=== PATIENT | female | born 1990 | race African-American/Black ===

== ENCOUNTER 2018-06-14 14:55 | Observation (INO) | payer OTHER ==
[2018-06-14] MEDS ORDERED: SODIUM CHLORIDE 0.9% 500 ML INFUS.BAG IV ONE ×2 (16:01→20:29)
[2018-06-14] MEDS ORDERED: PANTOPRAZOLE SODIUM 40 MG VIAL IVPUSH ONE (16:01)
[2018-06-14] MEDS ORDERED: LIDOCAINE VISCOUS 2% ORAL/TOP 100 ML BOTTLE MM ONE (16:01)
[2018-06-14] MEDS ORDERED: MAG HYDROX/AL HYDROX/SIMETH 30 ML UNIT-DOSE CUP PO ONE (16:01)
[2018-06-14] MEDS ORDERED: ONDANSETRON 4 MG/2 ML VIAL IVPUSH ONE (16:02)
[2018-06-14] MEDS ORDERED: ONDANSETRON 4 MG/2 ML VIAL ONE (16:20)
[2018-06-14] MEDS ORDERED: PANTOPRAZOLE SODIUM 40 MG/100 ML BAG IVPB ONE ×2 (16:20→16:21)
[2018-06-14] MEDS ORDERED: MAG HYDROX/AL HYDROX/SIMETH 30 ML UNIT-DOSE CUP ONE (16:20)
[2018-06-14] MEDS ORDERED: LIDOCAINE VISCOUS 2% ORAL/TOP 20 ML UNIT-DOSE CUP ONE (16:20)
[2018-06-14 17:14] LABS: BASO % 0.5 % (0-2.0); EOS % 0.3 % (0-4.5); HEMATOCRIT 33.7 % (32.4-45.2); HEMOGLOBIN 11.3 GM/dL (10.7-15.3); LYMPH % 20.9 % (8-40); MCH 31.3 pg (25.7-33.7); MCHC 33.5 g/dl (32.0-36.0); MEAN CELL VOLUME 93.5 fl (80-96); MEAN PLT VOLUME 8.6 fl (7.5-11.1); MONO % 12.4 % (3.8-10.2); NEUT % 65.9 % (42.8-82.8); PLATELET COUNT 230 K/MM3 (134-434); RDW 13.2 % (11.6-15.6); WHITE BLOOD COUNT 7.3 K/mm3 (4.0-10.0)
--- NOTE | 2018-06-14 17:30 | PDOC ---
Attending Attestation - HPI HPI: 06/14/18 17:54 The patient is a 28 year old female with a significant PMH of gastritis H pylori who presents to the emergency department via EMS with recurring episodes of nausea and diarrhea for 4 days. The patient reports that she was recently diagnosed with gastritis at [facility] which she was discharged. The patient states that she was here in the ED for similar symptoms 3 times. She reports some constipation. She states that she has been unable to tolerate PO secondary to symptoms. The patient denies any other complaints or symptoms Documentation prepared by Regan Burns, acting as medical or surgical instrument maker for Unique Boykin MD. <Regan Burns - Last Filed: 06/14/18 17:54> - Resident Resident Name: Des Hodge - ED Attending Attestation I have performed the following: I have examined & evaluated the patient, The case was reviewed & discussed with the resident, I agree w/resident's findings & plan, Exceptions are as noted - Physicial Exam PE: 06/15/18 08:03 Gen: aaox3, appears uncomfortable heent: eomi, dry mm heart: +s1s2 reg lungs: cta b/l abd: soft, +ttp epigastric/LLQ/LUQ/suprapubic ext: no c/c/e skin: no rashes - Medical Decision Making 06/14/18 17:11 I, Dr. Unique Boykin, DO, attest that this document has been prepared under my direction and personally reviewed by me in its entirety. I further attest, that it accurately reflects all work, treatment, procedures and medical decision -making performed by me. 06/14/18 17:46 a/p: 28yo female with constipation x 4 days and 4 days of nonbilious/nonbloody vomitus -unable to tolerate po -4th er visit - seen at [facility] then 3rd visit to [facility] -abd with ttp LLQ, suprapubic, epigastric ttp -will repeat labs -will obtain ct abd/pelvis for further eval -will give ivf hydration, nausea control -will monitor and reassess 06/14/18 17:49 labs reviewed with improvement in mildly elevated lft pending ct <Unique Boykin - Last Filed: 06/15/18 08:04>
[2018-06-14 17:41] LABS: ALBUMIN 3.6 g/dl (3.4-5.0); ALK PHOS 47 U/L (45-117); ANION GAP 9 MMOL/L (8-16); BILIRUBIN,TOTAL 0.7 mg/dL (0.2-1.0); BLOOD UREA NITROGEN 12 mg/dL (7-18); CALCIUM 8.2 mg/dL (8.5-10.1); CHLORIDE 105 mmol/L (98-107); CO2 24 mmol/L (21-32); CREATININE 0.6 mg/dL (0.55-1.02); GLUCOSE,RANDOM 64 mg/dL (74-106); SGOT/AST 21 U/L (15-37); SGPT/ALT 57 U/L (12-78); SODIUM 138 mmol/L (136-145); TOT PROT 6.4 g/dl (6.4-8.2)
[2018-06-14 17:43] LABS: LIPASE 262 U/L (73-393)
[2018-06-14] MEDS ORDERED: DEXTROSE 50%-WATER - 25 GM/50 ML VIAL IVPUSH ONE (18:01)
[2018-06-14] MEDS ORDERED: DEXTROSE 50%-WATER 25 GM/50 ML DISP.SYRIN ONE (18:22)
--- NOTE | 2018-06-14 18:57 | PDOC ---
History of Present Illness - General Chief Complaint: Nausea/Vomiting Stated Complaint: Nausea/Vomiting Time Seen by Provider: 06/14/18 15:38 History Source: Patient Exam Limitations: No Limitations - History of Present Illness Initial Comments: 28 y/o female presenting to [facility] via ambulance complaining of nausea/ vomiting and abdominal pain. Symptoms have been acute on chronic since the beginning of May. She was evaluated at [facility] and diagnosed with gastritis secondary to h. Pylori, which was revealed by endoscopic biopsy ( she reports). Dr. Martinez is her director [employer] of record; prescribed triple therapy; pt reports good compliance until the past three days. She has been experiencing nausea and vomiting for the past few days; described as non- bloody and non-bilious. Has been evaluated at [facility] once and twice at this facility since 12 June 2018. Was discharged yesterday with PO zofran and Maalox. Pt reports she continues to be unable to take anything PO without vomiting. CBC unremarkable for derangement. CMP revealed i 1+ acetone in serum. 06/15/18 00:[address] Biggs. Agrees to admit pt to med/ surg for observation status. Past History - Past Medical History Allergies/Adverse Reactions: Allergies Allergy/AdvReac Type Severity Reaction Status Date / Time No Known Allergies Allergy Verified 06/14/18 15:20 Home Medications: Ambulatory Orders Mag Hydrox/Al Hydrox/Simeth [Mylanta Suspension -] 30 ml PO Q6H #1 bottle Ondansetron [Ondansetron Odt] 8 mg PO QID PRN 3 Days #12 tab.rapdis 06/13/18 Amoxicillin - [Amoxicillin 500mg Capsule -] 1,000 mg BID 06/14/18 Clarithromycin 500 mg BID 06/14/18 Ondansetron [Zofran Odt -] 4 mg PO Q8H 06/14/18 COPD: No GI Disorders: Yes (Gerd & H-pil) - Immunization History Immunization Up to Date: Yes - Suicide/Smoking/Psychosocial Hx Smoking Status: Yes Smoking History: Current every day smoker Have you smoked in the past 12 months: Yes Number of Cigarettes Smoked Daily: 3 Information on smoking cessation initiated: Yes Hx Alcohol Use: Yes Drug/Substance Use Hx: No Substance Use Type: None Review of Systems - Review of Systems Constitutional: No: Chills, Diaphoresis, Fever, Weakness HEENTM: No: Difficulty Swallowing Respiratory: No: Cough, Shortness of Breath Cardiac (ROS): No: Chest Pain ABD/GI: Yes: Nausea, Vomiting, Abdominal cramping. No: Constipated, Diarrhea, Difficulty Swallowing, Poor Appetite, Rectal Bleeding, Tarry Stools : No: Burning, Dysuria, Discharge, Flank Pain, Hematuria Integumentary: No: Rash Endocrine: No: Increased Hunger Hematologic/Lymphatic: No: Easy Bleeding, Easy Bruising *Physical Exam - Vital Signs Last Vital Signs Temp Pulse Resp BP Pulse Ox 99.3 F 78 18 144/90 100 06/14/18 14:58 06/14/18 18:32 06/14/18 18:32 06/14/18 18:32 06/14/18 18:32 - Physical Exam Comments: Constitutional: Well-developed, well-nourished female in no apparent life threat but in obvious discomfort. Found semi-fowlers in hospital bed. Alert and oriented x4. Answered all questions appropriately and completely. Speech was non-labored, non-pressured. No retching or vomiting witnessed during interview. HEENT: Normocephalic. No obvious external signs of trauma. Hearing grossly normal. No nasal discharge. Conjunctiva and oral mucosa moist and not injected. Neck is supple, trachea is midline. Cardiovascular: Regular rate and regular rhythm. No murmur, rubs, clicks, or gallops. Peripheral pulses: Radial pulses full. Respiratory: Equal chest rise and fall. Clear to auscultation bilaterally. No stridor, no wheezing, no rhonchi. Gastrointestinal: abdomen is tender in epigastrium without rebound or guarding. No peritoneal signs. Abd is otherwise soft and non-distended. No hepatosplenemegaly. No pulsatile masses. No overlying skin lesions or obvious signs of trauma. Neuro: Alert and oriented. Moving all four extremities spontaneously. Skin: Warm, dry, and intact. No bruising, rashes, or other lesions. : No R or L CVA tenderness. Psych: Affect: appropriate. Mood: normal. ED Treatment Course - LABORATORY CBC & Chemistry Diagram: 06/14/18 16:55 06/14/18 16:55 - ADDITIONAL ORDERS Additional order review: Laboratory Results 06/14/18 06/14/18 16:55 16:55 Sodium 138 Potassium 4.0 Chloride 105 Carbon Dioxide 24 Anion Gap 9 BUN 12 Creatinine 0.6 Creat Clearance w eGFR > 60 Random Glucose 64 L Calcium 8.2 L Total Bilirubin 0.7 AST 21 ALT 57 Alkaline Phosphatase 47 D Total Protein 6.4 Albumin 3.6 Lipase 262 Beta HCG, Quant < 1.0 06/14/18 16:55 RBC 3.60 MCV 93.5 MCHC 33.5 RDW 13.2 MPV 8.6 Neutrophils % 65.9 Lymphocytes % 20.9 D Monocytes % 12.4 H Eosinophils % 0.3 D Basophils % 0.5 - RADIOLOGY Radiology Studies Ordered: Category Date Time Status ABDOMEN & PELVIS CT WITH CONTR [CT] Stat CT Scan 06/14/18 17:04 Ordered - Medications Given in the ED: ED Medications Discontinued Medications Generic Name Dose Route Start Last Admin Trade Name Freq PRN Reason Stop Dose Admin Al Hydroxide/Mg Hydroxide 30 ml 06/14/18 16:01 06/14/18 16:30 Mylanta Oral Suspension - PO 06/14/18 16:02 30 ml ONCE ONE Administration Dextrose 12.5 gm 06/14/18 18:01 06/14/18 18:25 D50w (Vial) - IVPUSH 06/14/18 18:02 12.5 gm NOW ONE Administration Lidocaine HCl 15 ml 06/14/18 16:01 06/14/18 16:30 Xylocaine 2% Viscous MM 06/14/18 16:02 15 ml ONCE ONE Administration Ondansetron HCl 4 mg 06/14/18 16:02 06/14/18 16:31 Zofran Injection IVPUSH 06/14/18 16:03 4 mg ONCE ONE Administration Pantoprazole Sodium 40 mg 06/14/18 16:01 06/14/18 16:30 Protonix Iv IVPUSH 06/14/18 16:02 40 mg ONCE ONE Administration Sodium Chloride 1,000 ml 06/14/18 16:01 06/14/18 16:30 Normal Saline - IV 06/14/18 16:02 1,000 ml ONCE ONE Administration Medical Decision Making - Medical Decision Making *Reviewed nursing notes and prior visit documentation. 28 y/o female complaining of nausea/vomiting in setting of recently diagnosed gastritis and h. Pylori infection. Currently on triple therapy. Has been evaluated four times at two different hospitals in the past three days. Unable to tolerate PO. Afebrile. Vitals unremarkable for hypotension or tachycardia. Physical exam revealed tenderness in epigastrium without peritoneal signs. Concern for developing malnutrition versus metabolic derangement with duration of symptoms. Nausea/vomiting likely secondary to gastritis. Low suspicion for gastric perforation without peritoneal signs. Low suspicion for Boerhaave's syndrome without chest pain. Will order CBC, CMP, PCP: Ayden Bañuelos 18:03 Mildly hypoglycemic. Ordered half an amp of D50. 19:52 Pt reports burning sensation in throat and abdominal pain has somewhat improved. Completed drinking both cups of PO contrast without vomiting. 06/14/18 22:02 CT abdomen with PO contrast unremarkable for acute intra- abdominal process. Pt reports she continues to feel intense nausea and abdominal pain. Microblog sent to [facility] Hospitalist team for admission for observation with concern for likely decreased PO intake at home if discharged. 06/14/18 22:09 Ordered serum acetone with concern for acidosis give ketones present in urine. Ordered Reglan for additional antiemetic relief. 06/15/18 00:22 Serum acetone 1+ positive. Bedside consultation with Dr. Biggs. Agrees to admit pt to med/surg for observation. *DC/Admit/Observation/Transfer Diagnosis at time of Disposition: Unable to eat Vomiting Qualifiers: Vomiting type: unspecified Vomiting Intractability: intractable Nausea presence : with nausea Qualified Code(s): R11.2 - Nausea with vomiting, unspecified - Discharge Dispostion Condition at time of disposition: Fair Decision to Admit order: Yes - Referrals Referrals: Ayden Bañuelos [Primary Care Provider] - - Patient Instructions - Post Discharge Activity
[2018-06-14 19:10] LABS: URINE APPEARANCE CLOUDY; URINE BILIRUBIN NEGATIVE (<2.0 mg/dL); URINE COLOR YELLOW; URINE GLUCOSE (UA) 2+ (NEGATIVE); URINE KETONE 2+ (NEGATIVE); URINE LEUK ESTERASE TRACE (NEGATIVE); URINE NITRITE NEGATIVE (NEGATIVE); URINE UROBILINOGEN NEGATIVE mg/dL (0.2-1.0)
[2018-06-14 19:14] LABS: URINE PROTEIN 1+ (NEGATIVE)
[2018-06-14 19:20] LABS: EPI CELLS MANY /HPF (FEW); URINE BACTERIA RARE /hpf (NONE SEEN); URINE MUCUS FEW
--- NOTE | 2018-06-14 20:35 | PDOC ---
*Physical Exam - Vital Signs Last Vital Signs Temp Pulse Resp BP Pulse Ox 99.3 F 78 18 144/90 100 06/14/18 14:58 06/14/18 18:32 06/14/18 18:32 06/14/18 18:32 06/14/18 18:32 ED Treatment Course - LABORATORY CBC & Chemistry Diagram: 06/14/18 16:55 06/14/18 16:55 - ADDITIONAL ORDERS Additional order review: Laboratory Results 06/14/18 06/14/18 06/14/18 18:56 16:55 16:55 Sodium 138 Potassium 4.0 Chloride 105 Carbon Dioxide 24 Anion Gap 9 BUN 12 Creatinine 0.6 Creat Clearance w eGFR > 60 Random Glucose 64 L Calcium 8.2 L Total Bilirubin 0.7 AST 21 ALT 57 Alkaline Phosphatase 47 D Total Protein 6.4 Albumin 3.6 Lipase 262 Beta HCG, Quant < 1.0 Urine Color Yellow Urine Appearance Cloudy Urine pH 6.0 Ur Specific [place] 1.021 Urine Protein 1+ H Urine Glucose (UA) 2+ H Urine Ketones 2+ H Urine Blood 3+ H Urine Nitrite Negative Urine Bilirubin Negative Urine Urobilinogen Negative Ur Leukocyte Esterase Trace Urine WBC (Auto) 11 Urine RBC (Auto) 7 Ur Epithelial Cells Many Urine Bacteria Rare Urine Mucus Few 06/14/18 16:55 RBC 3.60 MCV 93.5 MCHC 33.5 RDW 13.2 MPV 8.6 Neutrophils % 65.9 Lymphocytes % 20.9 D Monocytes % 12.4 H Eosinophils % 0.3 D Basophils % 0.5 - Medications Given in the ED: ED Medications Discontinued Medications Generic Name Dose Route Start Last Admin Trade Name Riddhi PRN Reason Stop Dose Admin Al Hydroxide/Mg Hydroxide 30 ml 06/14/18 16:01 06/14/18 16:30 Mylanta Oral Suspension - PO 06/14/18 16:02 30 ml ONCE ONE Administration Dextrose 12.5 gm 06/14/18 18:01 06/14/18 18:25 D50w (Vial) - IVPUSH 06/14/18 18:02 12.5 gm NOW ONE Administration Lidocaine HCl 15 ml 06/14/18 16:01 06/14/18 16:30 Xylocaine 2% Viscous MM 06/14/18 16:02 15 ml ONCE ONE Administration Ondansetron HCl 4 mg 06/14/18 16:02 06/14/18 16:31 Zofran Injection IVPUSH 06/14/18 16:03 4 mg ONCE ONE Administration Pantoprazole Sodium 40 mg 06/14/18 16:01 06/14/18 16:30 Protonix Iv IVPUSH 06/14/18 16:02 40 mg ONCE ONE Administration Sodium Chloride 1,000 ml 06/14/18 16:01 06/14/18 16:30 Normal Saline - IV 06/14/18 16:02 1,000 ml ONCE ONE Administration Medical Decision Making - Medical Decision Making 06/14/18 20:33 I picked up patient in signout. SHe has been vomiting and feeling nauseous for days. She has normal labs; however she is ketotic -likely the cause of worsening Nausea and vomiting. She received 1L NSS previously; I ordred another L saline and we will follow that with D5W. 06/15/18 00:59 Despite hydration pt has a serum acetone of 1+ She will be admitted to the hospitalist team. *DC/Admit/Observation/Transfer Diagnosis at time of Disposition: Vomiting, Unable to eat - Discharge Dispostion Condition at time of disposition: Fair - Referrals Referrals: Ayden Bañuelos [Primary Care Provider] - - Patient Instructions - Post Discharge Activity
[2018-06-14] MEDS ORDERED: METOCLOPRAMIDE HCL INJECTION 10 MG/2 ML VIAL IVPUSH ONE (22:08)
[2018-06-14] MEDS ORDERED: METOCLOPRAMIDE HCL INJECTION 10 MG/2 ML VIAL ONE (23:26)
--- NOTE | 2018-06-14 23:32 | HP ---
CHIEF COMPLAINT: PCP: Ayden Bañuelos HISTORY OF PRESENT ILLNESS: 28 y/o female w/ PMH of recent dx of H pylori back in may 2018, p/w nausea/ vomiting and epigastric pain that is sharp and burning. She has been experiencing worsening nausea and vomiting described as non-bloody and non- bilious, as well as abdominal pain that is R sided and migrates to epigastrum. Pain is worsened w/ hunger. Symptoms have been acute on chronic since the beginning of May where she was evaluated at [facility] and diagnosed with gastritis secondary to h. Pylori, which was revealed by endoscopic biopsy (she reports). 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 Of note pt finishing course of clindamycin for tooth ache/infection Has been evaluated at [facility] once and twice at this facility since . She was discharged yesterday with PO zofran and Maalox. Pt reports being unable to take anything PO without vomiting, 4 episodes today. Pt started eating spicy chips a few weeks ago. Of note pt endorses tea colored urine. LMP and periods are regular. Denies any fever, chills, cp, sob, dysuria, blood in stools, vaginal discharge or bleeding ER course was notable for: (1)2L NS, mylanta, protonix, zofran, D50 (2)CT A/P - no acute process, mod-small spleen (3)preg test neg. UA 3+ blood, 2+ glucose and ketones 1+protein. lipase nl Recent Travel: denies PAST MEDICAL HISTORY: LMP 05/25/18, periods are regular has 1 daughter, vaginal PAST SURGICAL HISTORY: denies Social History: Smokin/2 ppd/10yr Alcohol:every other weekend 2 cups vodka Drugs: marijuana Family History: DM Allergies No Known Allergies Allergy (Verified 06/14/18 15:20) HOME MEDICATIONS: Home Medications Prescribed by Dr. Martinez amox, clarithromycin, omeprazole Clindamycin, per pt taking for tooth ache/infection Medication Instructions Recorded Mag Hydrox/Al Hydrox/Simeth 30 ml PO Q6H #1 bottle 06/13/18 [Mylanta Suspension -] Ondansetron [Ondansetron Odt] 8 mg PO QID PRN 3 Days #12 06/13/18 tab.rapdis REVIEW OF SYSTEMS reviewed in hpi PHYSICAL EXAMINATION Vital Signs - 24 hr 06/14/18 06/14/18 14:58 18:32 Temperature 99.3 F Pulse Rate 75 Pulse Rate [ 78 Left Radial] Respiratory 18 18 Rate Blood Pressure 132/86 Blood Pressure 144/90 [Right Arm] O2 Sat by Pulse 100 100 Oximetry (%) GENERAL:AOx3, in mild distress and looks uncomfortable. anxious and emotional. asking "am I a bad person?" Thin appearing HEAD: NCAT EYES: PERRLA, sclera anicteric, conjunctiva clear. No lid lag. EARS, NOSE, THROAT: nares patent, oropharynx clear without exudates. dry MM. NECK: Normal range of motion, supple without lymphadenopathy, JVD, or masses. LUNGS: CTAB No wheezes, and no crackles. No accessory muscle use. HEART: RRR, normal S1 and S2 systoli t murmur at apex? no rub or gallop. ABDOMEN: Soft, NT ND ++BS, no guarding, no rebound, no masses. MUSCULOSKELETAL: Normal range of motion at all joints. No bony deformities or tenderness. UPPER EXTREMITIES: 2+ pulses, warm, well-perfused. No cyanosis. No clubbing. No peripheral edema. LOWER EXTREMITIES: 2+ pulses, warm, well-perfused. No calf tenderness. No peripheral edema. NEUROLOGICAL: Cranial nerves II-XII intact. Normal speech. PSYCHIATRIC: Cooperative. Good eye contact. Appropriate mood and affect. SKIN: Warm, dry, normal turgor, no rashes or lesions noted, normal capillary refill. Laboratory Results - last 24 hr 06/14/18 06/14/18 06/14/18 16:55 16:55 16:55 WBC 7.3 RBC 3.60 Hgb 11.3 Hct 33.7 MCV 93.5 MCH 31.3 MCHC 33.5 RDW 13.2 Plt Count 230 MPV 8.6 Absolute Neuts (auto) 4.8 Neutrophils % 65.9 Lymphocytes % 20.9 D Monocytes % 12.4 H Eosinophils % 0.3 D Basophils % 0.5 Nucleated RBC % 0 Sodium 138 Potassium 4.0 Chloride 105 Carbon Dioxide 24 Anion Gap 9 BUN 12 Creatinine 0.6 Creat Clearance w eGFR > 60 Random Glucose 64 L Calcium 8.2 L Total Bilirubin 0.7 AST 21 ALT 57 Alkaline Phosphatase 47 D Total Protein 6.4 Albumin 3.6 Lipase 262 Beta HCG, Quant < 1.0 Urine Color Urine Appearance Urine pH Ur Specific [place] Urine Protein Urine Glucose (UA) Urine Ketones Urine Blood Urine Nitrite Urine Bilirubin Urine Urobilinogen Ur Leukocyte Esterase Urine WBC (Auto) Urine RBC (Auto) Ur Epithelial Cells Urine Bacteria Urine Mucus 06/14/18 18:56 WBC RBC Hgb Hct MCV MCH MCHC RDW Plt Count MPV Absolute Neuts (auto) Neutrophils % Lymphocytes % Monocytes % Eosinophils % Basophils % Nucleated RBC % Sodium Potassium Chloride Carbon Dioxide Anion Gap BUN Creatinine Creat Clearance w eGFR Random Glucose Calcium Total Bilirubin AST ALT Alkaline Phosphatase Total Protein Albumin Lipase Beta HCG, Quant Urine Color Yellow Urine Appearance Cloudy Urine pH 6.0 Ur Specific [place] 1.021 Urine Protein 1+ H Urine Glucose (UA) 2+ H Urine Ketones 2+ H Urine Blood 3+ H Urine Nitrite Negative Urine Bilirubin Negative Urine Urobilinogen Negative Ur Leukocyte Esterase Trace Urine WBC (Auto) 11 Urine RBC (Auto) 7 Ur Epithelial Cells Many Urine Bacteria Rare Urine Mucus Few ASSESSMENT/PLAN: 28 y/o female w/ PMH of recent dx of H pylori back in may 2018, p/w nausea/ vomiting and epigastric pain on triple therapy Abd pain/N/V - 2/2 failed triple therapy for H Pylori vs non compliance vs difficulty tolerating PO. -liquid diet and advance as tolerated -quadruple therapy - amox/flagyl/protonix/bismuth -hold home clarithromycin will switch to flagyl -maalox -zofran for nausea -classroom monitor Qtc -IVF NS 125cc/hr -CBC and CMP grossly nl -preg test - neg -lipase nl -CT A/P - no acute process, mod-small spleen -no need for cultures, pt afebrile VSS, no leukocytosis -UA 3+ blood, 2+ glucose and ketones 1+ protein -f/u acetone level -glucose is on low side of 64 Transaminitis on 06/12 in the ED that has since self resolved - bili and alk phosph were nl at that time. May be 2/2 drug intoxication. possible passed stone w/ normal bili/alkphosh -Abd U/S 06/12 - Questionable slightly coarse echotexture of the liver. Please correlate with liver enzymes to rule out mild fatty infiltration. No gallstones are identified. Right kidney is isoechoic to the adjacent liver parenchyma that could be within normal limits -U-tox Dispo -obs -if pt tolerating PO and sxs improve can dc Visit type - Emergency Visit Emergency Visit: Yes ED Registration Date: 06/15/18 Care time: The patient presented to the Emergency Department on the above date and was hospitalized for further evaluation of their emergent condition. - New Patient This patient is new to me today: Yes Date on this admission: 06/15/18 - Critical Care Critical Care patient: No Hospitalist Screening - Colonoscopy Questionnaire Colonoscopy Questionnaire: Colonoscopy Questionnaire - Patient: 50 - 75 years old and never had a screening colonoscopy: Unknown History of colon or rectal polyps, or CA: Unknown History of IBD, Crohn's disease or UC: Unknown History of abdominal radiation therapy as a child: Unknown - Relative: 1 with colon or rectal CA, or polyps at age 60 or younger: Unknown Colon or rectal CA diagnosed at age 45 or younger: Unknown Multiple relatives with colon or rectal CA: Unknown - Outcome: Screening Result: Negative Screen
[2018-06-14] MEDS ORDERED: ACETAMINOPHEN 325 MG TABLET (FP) PO PRN (23:39)
[2018-06-14] MEDS ORDERED: SODIUM CHLORIDE 1,000 ML IV SCH (23:45)
[2018-06-15] MEDS: HEPARIN NA (PORCINE) 5,000 UNITS/ML 1ML VIAL SQ SCH ×3 (00:15→13:52)
[2018-06-15] MEDS ORDERED: HEPARIN NA (PORCINE) 5,000 UNITS/ML 1ML VIAL ONE (01:20)
[2018-06-15] MEDS ORDERED: AMOXICILLIN 500 MG CAPSULE (FP) PO SCH (02:21)
[2018-06-15] MEDS ORDERED: AMOXICILLIN 500 MG CAPSULE (FP) ONE (02:28)
[2018-06-15] MEDS: SODIUM CHLORIDE 1,000 ML IV SCH ×2 (03:38→09:55)
[2018-06-15 04:15] VITALS: BMI 19.2
--- NOTE | 2018-06-15 05:58 | PN ---
Teaching Attending Note Name of Resident: Basim Preston ATTENDING PHYSICIAN STATEMENT I saw and evaluated the patient. I reviewed the resident's note and discussed the case with the resident. I agree with the resident's findings and plan as documented. SUBJECTIVE: OBJECTIVE: ASSESSMENT AND PLAN: this is a 28 y/o female patient admitted to the hospital for intractable vomiting and nausea, patient was recently diagnosed with H. Pylori and was started on medical therapy, patient is still complaining of the epigastric pain , she is on day 10 of the therapy but since she was vomiting for the past 2 days decided to come to the hospital for failure to thrive, with nausea and vomiting plan: start PO diet when tolerable by patient start the patient on 4 therapy regiment since after 10 days the patient has no relief c/w IVF hydration anti-emetics prn d/c clarithromycin due to QT prolongation risk with anti-emetics
[2018-06-15] MEDS ORDERED: metroNIDAZOLE 250 MG TABLET PO SCH (06:00)
[2018-06-15] MEDS: MAG HYDROX/AL HYDROX/SIMETH 30 ML UNIT-DOSE CUP PO SCH ×2 (07:14→07:17)
[2018-06-15] MEDS: metroNIDAZOLE 250 MG TABLET PO SCH ×2 (07:17→13:52)
[2018-06-15 08:07] LABS: ALBUMIN 3.4 g/dl (3.4-5.0); ANION GAP 11 MMOL/L (8-16); BLOOD UREA NITROGEN 8 mg/dL (7-18); CALCIUM 8.1 mg/dL (8.5-10.1); CHLORIDE 103 mmol/L (98-107); CO2 23 mmol/L (21-32); GLUCOSE,RANDOM 65 mg/dL (74-106); MAGNESIUM 1.8 mg/dL (1.8-2.4); POTASSIUM 3.5 mmol/L (3.5-5.1); SODIUM 137 mmol/L (136-145)
[2018-06-15 08:09] LABS: EOS % 0.4 % (0-4.5); HEMATOCRIT 33.2 % (32.4-45.2); HEMOGLOBIN 11.2 GM/dL (10.7-15.3); LYMPH % 33.1 % (8-40); MCH 31.4 pg (25.7-33.7); MCHC 33.6 g/dl (32.0-36.0); MEAN CELL VOLUME 93.5 fl (80-96); MEAN PLT VOLUME 8.8 fl (7.5-11.1); NEUT % 51.5 % (42.8-82.8); PLATELET COUNT 200 K/MM3 (134-434); RBC 3.55 M/mm3 (3.60-5.2)
[2018-06-15 08:14] LABS: ALK PHOS 43 U/L (45-117); BILIRUBIN,TOTAL 0.7 mg/dL (0.2-1.0); CREATININE 0.5 mg/dL (0.55-1.02); PHOSPHOROUS 2.1 mg/dL (2.5-4.9); SGOT/AST 17 U/L (15-37); SGPT/ALT 43 U/L (12-78); TOT PROT 5.8 g/dl (6.4-8.2)
[2018-06-15 08:19] LABS: INR 1.17 (0.83-1.09); PROTHROMBIN TIME (PATIENT) 13.2 SEC (9.7-13.0)
[2018-06-15] MEDS ORDERED: NAPH,MB-DB/K PH,MBDB POWDER PACKET PO ONE (08:50)
--- NOTE | 2018-06-15 09:03 | PN ---
Progress Note (short form) - Note Progress Note: c/o epigastric pain. staets nausea and vomiting have stopped but scared to eat as she may not be able to tolerate. said nausea started 3 days ago and have not eaten well or taking her medications since. went to [facility] ER 2 days ago and gave her meds (protonix and potassium) she felt better and was sent home. denies CP, SOB, fever, chills. last BM was 4 days ago Current Medications Generic Name Dose Route Start Last Admin Trade Name Freedwin PRN Reason Stop Dose Admin Acetaminophen 650 mg 06/14/18 23:39 Tylenol - PO Q4H PRN PAIN LEVEL 6-10 Al Hydroxide/Mg Hydroxide 30 ml 06/15/18 02:30 06/15/18 07:17 Mylanta Oral Suspension - PO 30 ml Q6HPO KELLI Administration Bismuth Subsalicylate 300 mg 06/15/18 10:00 Pepto-Bismol - PO QID KELLI Doxycycline Hyclate 100 mg 06/15/18 10:00 Vibramycin - PO BID@1000,1800 KELLI Heparin Sodium (Porcine) 5,000 unit 06/14/18 23:45 06/15/18 07:20 Heparin - SQ 5,000 unit TID KELLI Administration Sodium Chloride 1,000 mls @ 125 mls/hr 06/15/18 02:35 06/15/18 03:38 Normal Saline - IV 125 mls/hr ASDIR KELLI Administration Metronidazole 500 mg 06/15/18 02:24 06/15/18 07:17 Flagyl - PO 500 mg TID KELLI Administration Pantoprazole Sodium 40 mg 06/15/18 10:00 Protonix - PO BID KELLI Potassium Phos/Sodium Phos 2 packet 06/15/18 08:50 Phos-Nak Packet - PO 06/15/18 08:51 ONCE ONE Last Vital Signs Temp Pulse Resp BP Pulse Ox 98.3 F 75 18 129/78 100 06/15/18 06:00 06/15/18 06:00 06/15/18 06:00 06/15/18 06:00 06/15/18 03:11 General very anxious, tearful during exam CV S1 S2 RRR no murmur/rub/gallop Lungs CTA B/L no wheezing/rales/rhonchi Abdomen +epigastric tenderness soft no rebound or guarding. normoactive BS CBCD WBC 7.0 K/mm3 (4.0-10.0) 06/15/18 06:00 RBC 3.55 M/mm3 (3.60-5.2) L 06/15/18 06:00 Hgb 11.2 GM/dL (10.7-15.3) 06/15/18 06:00 Hct 33.2 % (32.4-45.2) 06/15/18 06:00 MCV 93.5 fl (80-96) 06/15/18 06:00 MCHC 33.6 g/dl (32.0-36.0) 06/15/18 06:00 RDW 13.0 % (11.6-15.6) 06/15/18 06:00 Plt Count 200 K/MM3 (134-434) 06/15/18 06:00 MPV 8.8 fl (7.5-11.1) 06/15/18 06:00 CMP Sodium 137 mmol/L (136-145) 06/15/18 06:00 Potassium 3.5 mmol/L (3.5-5.1) 06/15/18 06:00 Chloride 103 mmol/L (98-107) 06/15/18 06:00 Carbon Dioxide 23 mmol/L (21-32) 06/15/18 06:00 Anion Gap 11 MMOL/L (8-16) 06/15/18 06:00 BUN 8 mg/dL (7-18) 06/15/18 06:00 Creatinine 0.5 mg/dL (0.55-1.02) L 06/15/18 06:00 Creat Clearance w eGFR > 60 (>60) 06/15/18 06:00 Calcium 8.1 mg/dL (8.5-10.1) L 06/15/18 06:00 Total Bilirubin 0.7 mg/dL (0.2-1.0) 06/15/18 06:00 AST 17 U/L (15-37) 06/15/18 06:00 ALT 43 U/L (12-78) 06/15/18 06:00 Alkaline Phosphatase 43 U/L (45-117) L 06/15/18 06:00 Total Protein 5.8 g/dl (6.4-8.2) L 06/15/18 06:00 Albumin 3.4 g/dl (3.4-5.0) 06/15/18 06:00 Assessment and plan 28yo F with recently dx of Hpylori on bx started on triple therapy and not tolerating regimen 1. Abdominal pain with nausea and vomiting- likely due to abx regimen and intolerance of therapy. was switched to quadruple therapy with mild improvement. did not eat much but does not like the liquid diet. will switch to BRAT diet. antiemetics. will need to f/u with GI as outpatient 2. can d/c home once tolerating diet Visit type - Emergency Visit Emergency Visit: Yes ED Registration Date: 06/15/18 Care time: The patient presented to the Emergency Department on the above date and was hospitalized for further evaluation of their emergent condition. - New Patient This patient is new to me today: Yes Date on this admission: 06/15/18 - Critical Care Critical Care patient: No - Discharge Referral Referred to [facility] Med P.C.: No
[2018-06-15] MEDS ORDERED: PANTOPRAZOLE 40 MG TABLET (FP) PO SCH ×2 (10:00)
[2018-06-15] MEDS ORDERED: LACTOBACILLUS ACIDOPHILUS 1 TABLET PO SCH (10:15)
[2018-06-15] MEDS: DOXYCYCLINE HYCLATE 100 MG CAPSULE PO SCH ×2 (10:44→16:16)
[2018-06-15 11:41] LABS: COCAINE, UR NEGATIVE ng/ml (CUTOFF=300); METHADONE, UR NEGATIVE ng/ml (CUTOFF=300); OPIATES, URI NEGATIVE ng/ml (CUTOFF=300); PHENCYCLIDINE,URINE NEGATIVE ng/ml (CUTOFF=25); URINE AMPHETAMINES NEGATIVE ng/ml (CUTOFF=500); URINE BARBITURATES NEGATIVE ng/ml (CUTOFF=200); URINE BENZODIAZEPINES NEGATIVE ng/ml (CUTOFF=200)
[2018-06-15] MEDS: BISMUTH SUBSALICYLATE 524 MG/30 ML UD PO SCH ×2 (12:19→18:04)
[2018-06-15 15:38] VITALS: TEMP 98.7
[2018-06-15 17:47] VITALS: BP 135/86; PULSE 72
--- NOTE | 2018-06-15 18:55 | EKG ---
Test Reason : Blood Pressure : / mmHG Vent. Rate : 062 BPM Atrial Rate : 062 BPM P-R Int : 142 ms QRS Dur : 068 ms QT Int : 430 ms P-R-T Axes : 041 067 072 degrees QTc Int : 436 ms NORMAL SINUS RHYTHM WITH SINUS ARRHYTHMIA NORMAL ECG NO PREVIOUS ECGS AVAILABLE Confirmed by MAKEDA MIRZA MD ([id number]) on 06/15/2018 6:55:27 PM Referred By: Confirmed By:MAKEDA MIRZA MD
--- NOTE | 2018-06-16 07:20 | DS ---
Physical Exam: SUBJECTIVE: Patient seen and examined LABS Laboratory Results - last 24 hr 06/15/18 06/15/18 06/15/18 06:00 06:00 06:00 WBC 7.0 RBC 3.55 L Hgb 11.2 Hct 33.2 MCV 93.5 MCH 31.4 MCHC 33.6 RDW 13.0 Plt Count 200 MPV 8.8 Absolute Neuts (auto) 3.6 Neutrophils % 51.5 D Lymphocytes % 33.1 D Monocytes % 14.0 H Eosinophils % 0.4 Basophils % 1.0 Nucleated RBC % 0 PT with INR 13.20 H INR 1.17 H PTT (Actin FS) 31.0 Sodium 137 Potassium 3.5 Chloride 103 Carbon Dioxide 23 Anion Gap 11 BUN 8 Creatinine 0.5 L Creat Clearance w eGFR > 60 Random Glucose 65 L Calcium 8.1 L Phosphorus 2.1 L Magnesium 1.8 Total Bilirubin 0.7 AST 17 ALT 43 Alkaline Phosphatase 43 L Total Protein 5.8 L Albumin 3.4 Opiates Screen Methadone Screen Barbiturate Screen Phencyclidine Screen Ur Amphetamines Screen MDMA (Ecstasy) Screen Benzodiazepines Screen Cocaine Screen U Marijuana (THC) Screen 06/15/18 10:30 WBC RBC Hgb Hct MCV MCH MCHC RDW Plt Count MPV Absolute Neuts (auto) Neutrophils % Lymphocytes % Monocytes % Eosinophils % Basophils % Nucleated RBC % PT with INR INR PTT (Actin FS) Sodium Potassium Chloride Carbon Dioxide Anion Gap BUN Creatinine Creat Clearance w eGFR Random Glucose Calcium Phosphorus Magnesium Total Bilirubin AST ALT Alkaline Phosphatase Total Protein Albumin Opiates Screen Negative Methadone Screen Negative Barbiturate Screen Negative Phencyclidine Screen Negative Ur Amphetamines Screen Negative MDMA (Ecstasy) Screen Negative Benzodiazepines Screen Negative Cocaine Screen Negative U Marijuana (THC) Screen Positive HOSPITAL COURSE: Date of Admission:06/15/18 Date of Discharge: 06/16/18 ADmitting diagnosis: adbominal pain Pre hospital course 28 y/o female w/ PMH of recent dx of H pylori back in may 2018, p/w nausea/ vomiting and epigastric pain that is sharp and burning. She has been experiencing worsening nausea and vomiting described as non-bloody and non- bilious, as well as abdominal pain that is R sided and migrates to epigastrum. Pain is worsened w/ hunger. Symptoms have been acute on chronic since the beginning of May where she was evaluated at [facility] and diagnosed with gastritis secondary to h. Pylori, which was revealed by endoscopic biopsy (she reports). Dr. Martinez is her help desk assistant of record and prescribed triple therapy (amox, clarithromycin, omeprazole) on 06/06 ; pt reports good compliance and relief of sxs until the past three days. Of note pt finishing course of clindamycin for tooth ache/infection Has been evaluated at [facility] once and twice at this facility since . She was discharged yesterday with PO zofran and Maalox. Pt reports being unable to take anything PO without vomiting, 4 episodes today. Pt started eating spicy chips a few weeks ago. Of note pt endorses tea colored urine. LMP and periods are regular. Denies any fever, chills, cp, sob, dysuria, blood in stools, vaginal discharge or bleeding Subsequent hospital course observed on medicine. abx switched to quadruple therapy and IVF. symptomatically improved. diet advanced. pt decided she wanted to leave in the evening because no one was able to watch her child. refused to wait for the resident to head counselor them on risks of leaving and left the floor. informed the RN that she would follow up with her GI on sunday. pt eloped Minutes to complete discharge: 40 Discharge Summary Reason For Visit: UNABLE TO EAT/ VOMITING Condition: Fair - Instructions Referrals: Ayden Bañuelos [Primary Care Provider] - Disposition: AGAINST MEDICAL ADVICE - Home Medications Comprehensive Discharge Medication List: Ambulatory Orders Mag Hydrox/Al Hydrox/Simeth [Mylanta Suspension -] 30 ml PO Q6H #1 bottle Ondansetron [Ondansetron Odt] 8 mg PO QID PRN 3 Days #12 tab.rapdis 06/13/18 Amoxicillin - [Amoxicillin 500mg Capsule -] 1,000 mg BID 06/14/18 Clarithromycin 500 mg BID 06/14/18 Ondansetron [Zofran Odt -] 4 mg PO Q8H 06/14/18 Omeprazole 20 mg PO BID 06/15/18 This patient is new to me today: No Emergency Visit: Yes ED Registration Date: 06/15/18 Care time: The patient presented to the Emergency Department on the above date and was hospitalized for further evaluation of their emergent condition. Critical Care patient: No - Discharge Referral Referred to [facility] Med P.C.: No
== END 2018-06-15 20:30 | disposition left against medical advice (07) ==
LOC: JER 14:55 → UNDOADMOB 06-15 00:17 → JERBED 06-15 00:17 → UNDOADMOB 06-15 03:11 → JERBED 06-15 03:11 → J7W 06-15 03:31
PROVIDERS: ADMIT Internal Medicine; ATTEND Internal Medicine
PROC: 3E033GC Introduction of Other Therapeutic Substance into Peripheral Vein, Percutaneous Approach (ICD-10-PCS; principal; 2018-06-15)
PROC: 3E0337Z Introduction of Electrolytic and Water Balance Substance into Peripheral Vein, Percutaneous Approach (ICD-10-PCS; 2018-06-15)
DX: R13.0 Aphagia (principal); R11.2 Nausea with vomiting, unspecified; R10.13 Epigastric pain; F17.210 Nicotine dependence, cigarettes, uncomplicated
CPT/HCPCS: 36415; 74177-TC; 80053; 80307; 81003; 81015; 82009; 83690; 83735; 84100; 84702; 85025; 85610; 85730; 93005; 93010; 96372; 96374; 96375; 99283-25; G0378; J1644; J7030

== ENCOUNTER 2018-06-16 11:28 | Observation (INO) | payer OTHER ==
--- NOTE | 2018-06-16 11:41 | PDOC ---
History of Present Illness - General Chief Complaint: Nausea/Vomiting Stated Complaint: ABD PAIN Time Seen by Provider: 06/16/18 11:37 - History of Present Illness Initial Comments: 28 year old female with PMH of recent diagnosis of H pylori in may 2018 who was recently just discharged from our facility for inability to tolerate her triple therapy returning for inability to tolerate her PO medications, nausea, and NBNB vomiting. Patient states that she demanded to be discharged yesterday evening because she needed to find care for her daughter and has since resolved that issue. She attempted to take her antibiotics this morning but vomited them up a few minutes after ingestion. Her abdominal pain is still of a crampy quality in her right lower quadrant and epigastrium. Denies any fevers, chills, SOB, bleeding from any orifice, diarrhea, or other symptoms. From previous note: "Symptoms have been acute on chronic since the beginning of May where she was evaluated at [facility] and diagnosed with gastritis secondary to h. Pylori, which was revealed by endoscopic biopsy (she reports). Dr. Martinez is her concrete mason of record and prescribed triple therapy (amox, clarithromycin, omeprazole) on 06/06; pt reports good compliance and relief of sxs until the past three days. Of note pt finishing course of clindamycin for tooth ache/infection." 06/16/18 11:42 Past History - Past Medical History Allergies/Adverse Reactions: Allergies Allergy/AdvReac Type Severity Reaction Status Date / Time No Known Allergies Allergy Verified 06/16/18 11:32 Home Medications: Ambulatory Orders Mag Hydrox/Al Hydrox/Simeth [Mylanta Suspension -] 30 ml PO Q6H #1 bottle Ondansetron [Ondansetron Odt] 8 mg PO QID PRN 3 Days #12 tab.rapdis 06/13/18 Amoxicillin - [Amoxicillin 500mg Capsule -] 1,000 mg BID 06/14/18 Clarithromycin 500 mg BID 06/14/18 Ondansetron [Zofran Odt -] 4 mg PO Q8H 06/14/18 Omeprazole 20 mg PO BID 06/15/18 COPD: No GI Disorders: Yes (Gerd & H-pil) - Immunization History Immunization Up to Date: Yes - Suicide/Smoking/Psychosocial Hx Smoking Status: Yes Smoking History: Never smoked Have you smoked in the past 12 months: No Number of Cigarettes Smoked Daily: 3 Information on smoking cessation initiated: No Hx Alcohol Use: No Drug/Substance Use Hx: No Substance Use Type: None Review of Systems - Review of Systems Constitutional: Yes: Chills, Loss of Appetite. No: Diaphoresis, Fever HEENTM: No: Blurred Vision, Tearing Respiratory: No: Cough, Shortness of Breath, Wheezing Cardiac (ROS): No: Chest Pain, Irregular Heart Rate, Lightheadedness, Palpitations ABD/GI: Yes: Nausea, Poor Appetite, Poor Fluid Intake, Vomiting, Abdominal cramping. No: Diarrhea : No: Burning, Dysuria, Discharge Musculoskeletal: No: Back Pain, Joint Pain, Joint Swelling Integumentary: No: Bruising, Lesions, Lumps, Pallor, Pruritus Neurological: No: Headache, Numbness, Paresthesia Psychiatric: No: Anxiety, Depression Endocrine: No: Intolerance to Heat, Increased Urine Hematologic/Lymphatic: No: Anemia, Blood Clots, Easy Bleeding *Physical Exam - Vital Signs Last Vital Signs Temp Pulse Resp BP Pulse Ox 86 16 154/86 100 06/16/18 11:30 06/16/18 11:30 06/16/18 11:30 06/16/18 11:30 - Physical Exam General Appearance: Yes: Nourished, Appropriately Dressed. No: Apparent Distress HEENT: positive: EOMI, LYSSA, Normal ENT Inspection, Normal Voice Neck: positive: Trachea midline, Normal Thyroid, Supple. negative: Tender, Rigid Respiratory/Chest: positive: Lungs Clear, Normal Breath Sounds. negative: Chest Tender, Respiratory Distress, Accessory Muscle Use Cardiovascular: positive: Regular Rhythm, Regular Rate Gastrointestinal/Abdominal: positive: Normal Bowel Sounds, Tender (right lower quadrant tenderness), Flat, Soft Extremity: positive: Normal Capillary Refill, Normal Inspection, Normal Range of Motion. negative: Tender Integumentary: positive: Normal Color, Dry, Warm Neurologic: positive: quality compliance manager II-XII NML intact, Fully Oriented, Alert, Normal Mood/ Affect, Normal Response, Motor Strength 5/5 ED Treatment Course - LABORATORY CBC & Chemistry Diagram: 06/16/18 11:55 06/16/18 11:55 Medical Decision Making - Medical Decision Making 28 year old female with history of H. Pylori presenting multiple times to our facility for intractable abdominal pain, nausea, vomiting, and inability to tolerate her PO medications presenting with the same problems. We were going to attempt to give her some of her medications here but her abdominal pain and nausea were refractory to multiple non-opioid pain medications, anti-emetics, and anti-acids. Will admit patient for intractable abdominal pain, nausea, and vomiting. 06/16/18 15:04 *DC/Admit/Observation/Transfer Diagnosis at time of Disposition: H. pylori infection Abdominal pain Qualifiers: Abdominal location: epigastric Qualified Code(s): R10.13 - Epigastric pain Nausea & vomiting Qualifiers: Vomiting type: unspecified Vomiting Intractability: non-intractable Qualified Code(s): R11.2 - Nausea with vomiting, unspecified - Discharge Dispostion Condition at time of disposition: Improved Decision to Admit order: Yes - Referrals Referrals: Ayden Bañuelos [Primary Care Provider] - - Patient Instructions - Post Discharge Activity
[2018-06-16] MEDS ORDERED: FAMOTIDINE 20 MG/50 ML IVPB 20 MG/50 ML MG IVPB ONE ×2 (11:49→12:07)
[2018-06-16] MEDS ORDERED: ONDANSETRON 4 MG/2 ML VIAL IVPUSH ONE (11:49)
[2018-06-16] MEDS ORDERED: ONDANSETRON 4 MG/2 ML VIAL ONE (12:07)
[2018-06-16 12:13] LABS: BASO % 0.7 % (0-2.0); EOS % 0.1 % (0-4.5); HEMATOCRIT 35.1 % (32.4-45.2); HEMOGLOBIN 11.7 GM/dL (10.7-15.3); LYMPH % 15.7 % (8-40); MCH 30.8 pg (25.7-33.7); MCHC 33.3 g/dl (32.0-36.0); MEAN CELL VOLUME 92.4 fl (80-96); MEAN PLT VOLUME 8.6 fl (7.5-11.1); MONO % 8.4 % (3.8-10.2); NEUT % 75.1 % (42.8-82.8); PLATELET COUNT 228 K/MM3 (134-434); RBC 3.79 M/mm3 (3.60-5.2); RDW 12.9 % (11.6-15.6); WHITE BLOOD COUNT 5.8 K/mm3 (4.0-10.0)
[2018-06-16 12:25] LABS: CHLORIDE 104 mmol/L (98-107); POTASSIUM 4.8 mmol/L (3.5-5.1); SODIUM 137 mmol/L (136-145)
[2018-06-16] MEDS ORDERED: MAG HYDROX/AL HYDROX/SIMETH 30 ML UNIT-DOSE CUP PO ONE (12:28)
[2018-06-16 12:31] LABS: ALBUMIN 3.7 g/dl (3.4-5.0); ANION GAP 6 MMOL/L (8-16); BLOOD UREA NITROGEN 4 mg/dL (7-18); CALCIUM 8.5 mg/dL (8.5-10.1); CO2 27 mmol/L (21-32); CREATININE 0.8 mg/dL (0.55-1.02); GLUCOSE,RANDOM 97 mg/dL (74-106); SGPT/ALT 42 U/L (12-78)
[2018-06-16 12:32] LABS: SGOT/AST 40 U/L (15-37)
[2018-06-16 12:33] LABS: ALK PHOS 47 U/L (45-117); BILIRUBIN,TOTAL 0.4 mg/dL (0.2-1.0); TOT PROT 6.7 g/dl (6.4-8.2)
[2018-06-16] MEDS ORDERED: MAG HYDROX/AL HYDROX/SIMETH 30 ML UNIT-DOSE CUP ONE (12:34)
[2018-06-16] MEDS ORDERED: SUCRALFATE 1 GM/10 ML UNIT DOSE CUPS PO ONE (12:59)
[2018-06-16] MEDS ORDERED: ONDANSETRON *ODT* 4 MG TABLET SL ONE (13:27)
[2018-06-16] MEDS ORDERED: ONDANSETRON *ODT* 4 MG TABLET ONE (13:36)
[2018-06-16] MEDS ORDERED: SODIUM CHLORIDE 0.9% 500 ML INFUS.BAG IV ONE (13:37)
[2018-06-16] MEDS ORDERED: ACETAMINOPHEN 1000 MG/100 ML VIAL (NON FORMULARY) IVPB ONE (13:43)
[2018-06-16 13:49] LABS: AMYLASE 227 U/L (25-115)
[2018-06-16 13:50] LABS: LIPASE 283 U/L (73-393)
[2018-06-16] MEDS ORDERED: ACETAMINOPHEN INJECTION 100 ML IVPB ONE (13:52)
[2018-06-16 13:55] LABS: URINE APPEARANCE CLEAR; URINE BILIRUBIN NEGATIVE (<2.0 mg/dL); URINE COLOR LTYELLOW; URINE GLUCOSE (UA) NEGATIVE (NEGATIVE); URINE KETONE 1+ (NEGATIVE); URINE LEUK ESTERASE NEGATIVE (NEGATIVE); URINE NITRITE NEGATIVE (NEGATIVE); URINE PROTEIN NEGATIVE (NEGATIVE); URINE UROBILINOGEN NEGATIVE mg/dL (0.2-1.0)
[2018-06-16 14:12] LABS: HCG,QUALITATIVE URINE Negative
[2018-06-16 15:02] LABS: EPI CELLS RARE /HPF (FEW); URINE MUCUS RARE
--- NOTE | 2018-06-16 15:43 | PDOC ---
Attending Attestation - Resident Resident Name: Lexie Luu - ED Attending Attestation I have performed the following: I have examined & evaluated the patient, The case was reviewed & discussed with the resident, I agree w/resident's findings & plan, Exceptions are as noted - Medical Decision Making 06/16/18 15:41 28 yo F with h/o gastritis, hpylori, here wtih inability to tolerate triple therapy. was admitted for intractable vomiting recently. left [facility] due to issue with her daughter. now with intractable vomiting. threw up 4 times. differential: , pancreatitis, gastritis, minimal tenderness on exam. has had recent imaging of us and EGD . will d/w hospitalist if uanble to tolerate po. differential <JozefFatuma english - Last Filed: 06/16/18 15:41> - HPI HPI: 06/16/18 15:49 The patient is a 28 year old female with a past medical history of gastritis, H. pylori currently on triple therapy with PPI/clarithro/amoxicillin, seen multiples times this month in the ED for similar sx. Today, she presents with persistent epigastric pain, decreased PO tolerance, inability to take oral medications, and nausea with 4 episodes of vomiting. Currently on antibiotic regimen x 2 weeks, PPI and seen by Dr. Alina GARSIA. Patient wanted to be d/c yesterday to find care for her daughter. - Physicial Exam PE: GENERAL: Awake, alert, and fully oriented, in no acute distress HEAD: No signs of trauma EYES: PERRLA, EOMI, sclera anicteric, conjunctiva clear ENT: Auricles normal inspection, hearing grossly normal, nares patent. Moist mucosa NECK: Normal ROM, supple, no lymphadenopathy, JVD, or masses LUNGS: Breath sounds equal, clear to auscultation bilaterally. No wheezes, and no crackles HEART: Regular rate and rhythm, normal S1 and S2, no murmurs, rubs or gallops ABDOMEN: (+)Epigastric tenderness. Normoactive bowel sounds. No guarding, no rebound. No masses EXTREMITIES: Normal range of motion, no edema. No erythema or tenderness. DP/PT pulses 2+ and symmetric. Warm and well perfused. NEUROLOGICAL: Moves all extremities. Normal speech, normal gait SKIN: Warm, Dry, normal turgor, no rashes or lesions noted. <Melvi Lentz - Last Filed: 06/16/18 15:50> Attestations - Attestations Documentation prepared by Melvi Lentz, acting as medical doctor nuclear medicine for Fatuma Brown MD. <Melvi Lentz - Last Filed: 06/16/18 15:50>
--- NOTE | 2018-06-16 16:10 | HP ---
CHIEF COMPLAINT: abdominal pain PCP: Dr. Martinez (GI) HISTORY OF PRESENT ILLNESS: Pt is a 28 y/o F with no PMH presenting with complaint of abdominal pain. Pt states she initially had abdominal pain in early May. She went to [facility] and was diagnosed with H. pylori gastritis on EGD. She was sent home, but continued to have symptoms. She went back to [facility] and was treated and discharged. Her pain subsided for some time. She came to [facility] ED on 06/14 with the same complaint. She states that she came to this ED because she felt she was not being treated at [facility]. She returned to the ED because her pain got worse again. She reports several episodes of vomiting yesterday with green and brown colors as well as food contents. She reports 4 episodes of vomiting today with green color. Pt also endorses loose stools and urinary frequency. Denies fever, chills, dysuria. Pt states she eloped yesterday from [facility] because she had an issue with her daughter, but that issue has been resolved. ER course was notable for: (1) Zofran, NS, Pepcid, Mylanta, Carafate, Zofran, Ofirmev (2) labs unremarkable, vitals wnl (3) Recent Travel: denies PAST MEDICAL HISTORY: denies PAST SURGICAL HISTORY: denies Social History: Smokin-3 cig/day from age 18. Quit 2 weeks ago Alcohol: 1-2 drinks on weekends. Stopped alcohol when her abd pain began Drugs: marijuana Family History: denies Allergies No Known Allergies Allergy (Verified 06/16/18 11:32) HOME MEDICATIONS: Home Medications Medication Instructions Recorded Mag Hydrox/Al Hydrox/Simeth 30 ml PO Q6H #1 bottle 06/13/18 [Mylanta Suspension -] Ondansetron [Ondansetron Odt] 8 mg PO QID PRN 3 Days #12 06/13/18 tab.rapdis Amoxicillin - [Amoxicillin 500mg 1,000 mg BID 06/14/18 Capsule -] Clarithromycin 500 mg BID 06/14/18 Ondansetron [Zofran Odt -] 4 mg PO Q8H 06/14/18 Omeprazole 20 mg PO BID 06/15/18 REVIEW OF SYSTEMS CONSTITUTIONAL: loss of appetite Absent: fever, chills, diaphoresis, generalized weakness, malaise,, weight change HEENT: Absent: rhinorrhea, nasal congestion, throat pain, throat swelling, difficulty swallowing, mouth swelling, ear pain, eye pain, visual changes CARDIOVASCULAR: Absent: chest pain, syncope, palpitations, irregular heart rate, lightheadedness , peripheral edema RESPIRATORY: Absent: cough, shortness of breath, dyspnea with exertion, orthopnea, wheezing, stridor, hemoptysis GASTROINTESTINAL:abdominal pain, nausea, vomiting Absent: , abdominal distension, diarrhea, constipation, melena, hematochezia GENITOURINARY: frequency Absent: dysuria, , urgency, hesitancy, hematuria, flank pain, genital pain MUSCULOSKELETAL: Absent: myalgia, arthralgia, joint swelling, back pain, neck pain SKIN: Absent: rash, itching, pallor HEMATOLOGIC/IMMUNOLOGIC: Absent: easy bleeding, easy bruising, lymphadenopathy, frequent infections ENDOCRINE: Absent: unexplained weight gain, unexplained weight loss, heat intolerance, cold intolerance NEUROLOGIC: Absent: headache, focal weakness or paresthesias, dizziness, unsteady gait, seizure, mental status changes, bladder or bowel incontinence PSYCHIATRIC: Absent: anxiety, depression, suicidal or homicidal ideation, hallucinations. PHYSICAL EXAMINATION Vital Signs - 24 hr 06/16/18 11:30 Pulse Rate 86 Respiratory 16 Rate Blood Pressure 154/86 O2 Sat by Pulse 100 Oximetry (%) Gen: Lying in bed grimacing intermittently from pain. Apple sauce container at bedside empty. Emtpy vomit bag in bed. HEENT: NCAT, EOMI Neck: supple, no jvd Cardio: rrr, normal s1s2 Pulm: cta b/l Abd: nondistended. +BS. nontender on distracted exam. No guarding. Pt reports LUQ tenderness. Ext: 2+ pulses, no edema Laboratory Results - last 24 hr 06/16/18 06/16/18 06/16/18 11:55 11:55 13:42 WBC 5.8 RBC 3.79 Hgb 11.7 Hct 35.1 MCV 92.4 MCH 30.8 MCHC 33.3 RDW 12.9 Plt Count 228 MPV 8.6 Absolute Neuts (auto) 4.4 Neutrophils % 75.1 D Lymphocytes % 15.7 D Monocytes % 8.4 Eosinophils % 0.1 Basophils % 0.7 Nucleated RBC % 0 Sodium 137 Potassium 4.8 Chloride 104 Carbon Dioxide 27 Anion Gap 6 L BUN 4 L Creatinine 0.8 Creat Clearance w eGFR > 60 Random Glucose 97 Calcium 8.5 Total Bilirubin 0.4 AST 40 H ALT 42 Alkaline Phosphatase 47 Total Protein 6.7 Albumin 3.7 Total Amylase 227 H Lipase 283 Urine Color Ltyellow Urine Appearance Clear Urine pH 7.0 Ur Specific [place] 1.011 Urine Protein Negative Urine Glucose (UA) Negative Urine Ketones 1+ H Urine Blood 2+ H Urine Nitrite Negative Urine Bilirubin Negative Urine Urobilinogen Negative Ur Leukocyte Esterase Negative Urine WBC (Auto) 2 Urine RBC (Auto) 3 Ur Epithelial Cells Rare Urine Mucus Rare Urine HCG, Qual Negative 06/16/18 13:42 WBC RBC Hgb Hct MCV MCH MCHC RDW Plt Count MPV Absolute Neuts (auto) Neutrophils % Lymphocytes % Monocytes % Eosinophils % Basophils % Nucleated RBC % Sodium Potassium Chloride Carbon Dioxide Anion Gap BUN Creatinine Creat Clearance w eGFR Random Glucose Calcium Total Bilirubin AST ALT Alkaline Phosphatase Total Protein Albumin Total Amylase Lipase Urine Color Urine Appearance Urine pH Ur Specific [place] Urine Protein Urine Glucose (UA) Urine Ketones Urine Blood Urine Nitrite Urine Bilirubin Urine Urobilinogen Ur Leukocyte Esterase Urine WBC (Auto) Urine RBC (Auto) Ur Epithelial Cells Urine Mucus Urine HCG, Qual Cancelled ASSESSMENT/PLAN: Pt is a 28 y/o F with PMH recent diagnosis of H. pylori gastritis who presents to ED with abdominal pain and reports inability to tolerate PO. #Abdominal pain -location varies with different examiners: per report, epigastric and RLQ. On my exam, LUQ tenderness. -likely 2/2 h. pylori gastritis -resume BRAT diet -Zofran -Toradol #FEN -not on fluid -lytes wnl -BRAT diet #PPx -Hep subQ #Dispo -obs for gastritis with inability to tolerate PO Stephen Bustillo MD PGY-2 IM Visit type - Emergency Visit Emergency Visit: Yes Care time: The patient presented to the Emergency Department on the above date and was hospitalized for further evaluation of their emergent condition. - New Patient This patient is new to me today: Yes Date on this admission: 06/16/18 - Critical Care Critical Care patient: No Hospitalist Screening - Colonoscopy Questionnaire Colonoscopy Questionnaire: Colonoscopy Questionnaire - Patient: 50 - 75 years old and never had a screening colonoscopy: Unknown History of colon or rectal polyps, or CA: Unknown History of IBD, Crohn's disease or UC: Unknown History of abdominal radiation therapy as a child: Unknown - Relative: 1 with colon or rectal CA, or polyps at age 60 or younger: Unknown Colon or rectal CA diagnosed at age 45 or younger: Unknown Multiple relatives with colon or rectal CA: Unknown - Outcome: Screening Result: Negative Screen
--- NOTE | 2018-06-16 16:35 | PN ---
Teaching Attending Note Name of Resident: Stephen Bustillo ATTENDING PHYSICIAN STATEMENT I saw and evaluated the patient. I reviewed the resident's note and discussed the case with the resident. I agree with the resident's findings and plan as documented. SUBJECTIVE:28yo F with recently diagnosed H pylori was on triple therapy. developed abdominal pain with nausea and vomiting last week and stopped taking her medications. came to the ER on 06/14 and was admitted due to inability to tolerate po and triple therapy was switched to quadruple therapy. She eloped the next day due to family issues. pt returned as she took her triple therapy regimen and vomited it. states she has only been able to tolerate minimal bites of rice and apple sauce. denies Cp, SOB, fever, chills. 1 loose BM last night OBJECTIVE: Last Vital Signs Temp Pulse Resp BP Pulse Ox 86 16 154/86 100 06/16/18 11:30 06/16/18 11:30 06/16/18 11:30 06/16/18 11:30 General NAD CV S1 S2 RRR no murmur/rub/gallop Lungs CTA B/L no wheezing/rales/rhonchi Abdomen soft +epigastric tenderness no rebound or guarding. normoactive BS ASSESSMENT AND PLAN: 28yo F with recently diagnosed H pylori was on triple therapy and not tolerating it presents with abdominal pain with nausea and vomiting 1. Intractable abdominal pain- liekly due to multiple episodes of vomiting probably due to intolerance of abx or failed therapy. will place back on quadruple therapy as she was tolerating that in the hospital. cont IVF, pain and antiemetics. BRAT diet. will consider GI eval if does not improve by tomorrow. test negative. UA negative 2. DVT ppx- EAM
[2018-06-16 20:13] VITALS: BMI 18.6
[2018-06-16] MEDS: ONDANSETRON 4 MG/2 ML VIAL IVPUSH PRN (20:53)
[2018-06-16] MEDS: KETOROLAC TROMETHAMINE 15 MG/ML VIAL IVPUSH PRN (20:54)
[2018-06-16] MEDS: HEPARIN NA (PORCINE) 5,000 UNITS/ML 1ML VIAL SQ SCH (21:03)
[2018-06-17] MEDS: HEPARIN NA (PORCINE) 5,000 UNITS/ML 1ML VIAL SQ SCH ×3 (04:15→21:03)
[2018-06-17] MEDS: ONDANSETRON 4 MG/2 ML VIAL IVPUSH PRN (04:16)
[2018-06-17] MEDS: KETOROLAC TROMETHAMINE 15 MG/ML VIAL IVPUSH PRN ×3 (05:14→23:41)
[2018-06-17 06:57] LABS: BASO % 0.9 % (0-2.0); EOS % 1.5 % (0-4.5); HEMATOCRIT 34.5 % (32.4-45.2); HEMOGLOBIN 11.6 GM/dL (10.7-15.3); LYMPH % 33.8 % (8-40); MCH 30.9 pg (25.7-33.7); MCHC 33.7 g/dl (32.0-36.0); MEAN CELL VOLUME 91.7 fl (80-96); MEAN PLT VOLUME 8.5 fl (7.5-11.1); MONO % 15.9 % (3.8-10.2); NEUT % 47.9 % (42.8-82.8); PLATELET COUNT 213 K/MM3 (134-434); RBC 3.76 M/mm3 (3.60-5.2); RDW 12.7 % (11.6-15.6); WHITE BLOOD COUNT 6.3 K/mm3 (4.0-10.0)
[2018-06-17 07:11] LABS: ANION GAP 8 MMOL/L (8-16); BLOOD UREA NITROGEN 3 mg/dL (7-18); CALCIUM 8.5 mg/dL (8.5-10.1); CHLORIDE 102 mmol/L (98-107); CO2 29 mmol/L (21-32); CREATININE 0.6 mg/dL (0.55-1.02); GLUCOSE,RANDOM 84 mg/dL (74-106); POTASSIUM 3.4 mmol/L (3.5-5.1); SODIUM 139 mmol/L (136-145)
--- NOTE | 2018-06-17 09:01 | PN ---
Teaching Attending Note Name of Resident: Stephen Bustillo ATTENDING PHYSICIAN STATEMENT I saw and evaluated the patient. I reviewed the resident's note and discussed the case with the resident. I agree with the resident's findings and plan as documented. SUBJECTIVE:abdominal pain improved. vomited last night. only drank tea so far this AM but has been able to hold it down. denies Cp, SOB, fever, chills, N/V/C/ D. no BM since last night OBJECTIVE: Last Vital Signs Temp Pulse Resp BP Pulse Ox 98.4 F 65 18 122/75 100 06/17/18 06:00 06/17/18 06:00 06/17/18 06:00 06/17/18 06:00 06/17/18 04:00 General NAD Abdomen soft NT/ND no rebound or guarding. normoactive BS ASSESSMENT AND PLAN: 28yo F with recently diagnosed H pylori was on triple therapy and not tolerating it presents with abdominal pain with nausea and vomiting 1. Intractable abdominal pain- liekly due to multiple episodes of vomiting probably due to intolerance of abx or failed therapy. improved. will evaluate if able to tolerate po. cont quadruple therapy will need to f/u [facility] to determine duration of treatment and evaluation if infection has cleared. 2. hypokalemia- Kcl po 3. DVT ppx- EAM 4. will re-evaluate later today. if able to tolerate po will d/c. stressed importance of following up with her private GI doctor
[2018-06-17] MEDS: POTASSIUM CHLORIDE ORAL LIQUID 20 MEQ/15 ML PO ONE ×2 (10:01→14:12)
[2018-06-17] MEDS: PANTOPRAZOLE 40 MG TABLET (FP) PO SCH ×2 (10:20→21:02)
[2018-06-17] MEDS: DOXYCYCLINE HYCLATE 100 MG CAPSULE PO SCH ×2 (10:20→17:06)
[2018-06-17] MEDS: BISMUTH SUBSALICYLATE 524 MG/30 ML UD PO SCH ×3 (11:44→23:40)
[2018-06-17] MEDS: metroNIDAZOLE 250 MG TABLET PO SCH ×2 (13:24→21:02)
[2018-06-17] MEDS ORDERED: LORazepam 0.5 MG TABLET PO STA (16:07)
[2018-06-17] MEDS ORDERED: PT OWN MED DRAWER 7, Y5N ONE ×3 (16:59→20:52)
--- NOTE | 2018-06-17 17:38 | PN ---
Physical Exam: SUBJECTIVE: Patient seen and examined at bedside. Continues to complain of inability to eat and abdominal pain. OBJECTIVE: Vital Signs Period Temp Pulse Resp BP Sys/Rodriguez Pulse Ox Last 24 Hr 98.4 F-100.2 F 60-76 18-20 116-139/72-88 99-100 Gen: Sleeping comfortably, NAD HEENT: NCAT, EOMI Neck: supple, no jvd Cardio: rrr, normal s1s2 Pulm: cta b/l Abd: nondistended. +BS. tender to palpation diffusely Ext: 2+ pulses, no edema Laboratory Results - last 24 hr 06/17/18 06/17/18 06:30 06:30 WBC 6.3 RBC 3.76 Hgb 11.6 Hct 34.5 MCV 91.7 MCH 30.9 MCHC 33.7 RDW 12.7 Plt Count 213 MPV 8.5 Absolute Neuts (auto) 3.0 Neutrophils % 47.9 D Lymphocytes % 33.8 D Monocytes % 15.9 H D Eosinophils % 1.5 D Basophils % 0.9 Nucleated RBC % 0 Sodium 139 Potassium 3.4 L Chloride 102 Carbon Dioxide 29 Anion Gap 8 BUN 3 L Creatinine 0.6 Creat Clearance w eGFR > 60 Random Glucose 84 Calcium 8.5 Active Medications Generic Name Dose Route Start Last Admin Trade Name Freq PRN Reason Stop Dose Admin Bismuth Subsalicylate 262 mg 06/17/18 12:00 06/17/18 11:44 Pepto-Bismol - PO 262 mg 0000,0600,1200,2000 KELLI Administration Doxycycline Hyclate 100 mg 06/17/18 10:00 06/17/18 17:06 Vibramycin - PO 100 mg BID@1000,1800 KELLI Administration Heparin Sodium (Porcine) 5,000 unit 06/16/18 22:00 06/17/18 13:24 Heparin - SQ 5,000 unit TID KELLI Administration Ketorolac Tromethamine 15 mg 06/16/18 15:45 06/17/18 15:51 Toradol Injection - IVPUSH 06/21/18 15:44 15 mg Q6H PRN Administration PAIN LEVEL 1-5 Metronidazole 500 mg 06/17/18 14:00 06/17/18 13:24 Flagyl - PO 500 mg TID KELLI Administration Ondansetron HCl 4 mg 06/16/18 15:45 06/17/18 04:16 Zofran Injection IVPUSH 4 mg Q4H PRN Administration NAUSEA AND/OR VOMITING Pantoprazole Sodium 40 mg 06/17/18 10:00 06/17/18 10:20 Protonix - PO 40 mg BID KELLI Administration ASSESSMENT/PLAN: Pt is a 28 y/o F with PMH recent diagnosis of H. pylori gastritis who presents to ED with abdominal pain and reports inability to tolerate PO. #Abdominal pain -location varies with different examiners: per report, epigastric and RLQ. On my exam, LUQ tenderness. -likely 2/2 h. pylori gastritis -soft diet -Zofran -Toradol #FEN -not on fluid -lytes wnl -BRAT diet #PPx -Hep subQ #Dispo -obs for gastritis with inability to tolerate PO Stephen Bustillo MD PGY-2 IM Visit type - Emergency Visit Emergency Visit: No - New Patient This patient is new to me today: No - Critical Care Critical Care patient: No - Discharge Referral Referred to [facility] Med P.C.: No
[2018-06-18] MEDS: metroNIDAZOLE 250 MG TABLET PO SCH ×2 (06:08→14:06)
[2018-06-18] MEDS: BISMUTH SUBSALICYLATE 524 MG/30 ML UD PO SCH ×2 (06:12→12:23)
[2018-06-18] MEDS: HEPARIN NA (PORCINE) 5,000 UNITS/ML 1ML VIAL SQ SCH ×2 (06:16→14:05)
[2018-06-18] MEDS: KETOROLAC TROMETHAMINE 15 MG/ML VIAL IVPUSH PRN (06:54)
--- NOTE | 2018-06-18 08:47 | PN ---
Teaching Attending Note Name of Resident: Diann Mandel ATTENDING PHYSICIAN STATEMENT I saw and evaluated the patient. I reviewed the resident's note and discussed the case with the resident. I agree with the resident's findings and plan as documented with exceptions below. SUBJECTIVE: Patient seen and examined. No nausea, vomiting or abdominal pain. Tolerating diet well, eager to go home. OBJECTIVE: Vital Signs Period Temp Pulse Resp BP Sys/Rodriguez Pulse Ox Last 24 Hr 98.5 F-99.2 F 68-73 18-20 123-144/72-87 99-100 Intake & Output 06/15/18 06/16/18 06/17/18 06/18/18 23:59 23:59 23:59 23:59 Intake Total 600 Balance 600 Weight 95 lb 8 oz General: sitting in bed in no acute distress Abdomen; soft, NT throughout, ND, positive bowel sounds Chest: CTAB, no rales or wheezing Extremities: no edema HEENT: small cystic swelling with mild tenderness but no erythema above right first molar, cracked tooth, no discharge or erythema noted Home Medications Medication Instructions Recorded NK [No Known Home Medication] 06/16/18 Active Medications Bismuth Subsalicylate (Pepto-Bismol -) 262 mg PO 0000,0600,1200,2000 [facility] Last Admin: 06/18/18 06:12 Dose: 262 mg Doxycycline Hyclate (Vibramycin -) 100 mg PO BID@1000,1800 [facility] Last Admin: 06/17/18 17:06 Dose: 100 mg Heparin Sodium (Porcine) (Heparin -) 5,000 unit SQ TID [facility] Last Admin: 06/18/18 06:16 Dose: 5,000 unit Ketorolac Tromethamine (Toradol Injection -) 15 mg IVPUSH Q6H PRN PRN Reason: PAIN LEVEL 1-5 Stop: 06/21/18 15:44 Last Admin: 06/18/18 06:54 Dose: 15 mg Metronidazole (Flagyl -) 500 mg PO TID [facility] Last Admin: 06/18/18 06:08 Dose: 500 mg Ondansetron HCl (Zofran Injection) 4 mg IVPUSH Q4H PRN PRN Reason: NAUSEA AND/OR VOMITING Last Admin: 06/17/18 04:16 Dose: 4 mg Pantoprazole Sodium (Protonix -) 40 mg PO BID [facility] Last Admin: 06/17/18 21:02 Dose: 40 mg Laboratory Results - last 24 hr 06/18/18 06:20 Sodium 138 Potassium 3.3 L Chloride 98 Carbon Dioxide 27 Anion Gap 13 BUN 6 L Creatinine 0.6 Creat Clearance w eGFR > 60 Random Glucose 76 Calcium 9.2 ASSESSMENT AND PLAN: 28yo F with recently diagnosed H pylori gastritis was on triple therapy and not tolerating it presents with abdominal pain with nausea and vomiting -H. Pylori gastritis -Nausea/vomiting/abdominal pain, inability to tolerate PO -Hypokalemia -Right Molar Broken tooth Plan: Abdominal exam benign, tolerating diet. Patient reports compliance with her triple therapy that was started on 06/06 till admitted inhouse. Changed to quadruple therapy on admission. Plan for total 14 days treatment, that will complete tomorrow, discussed with patient for outpatient GI follow up in 1 week. Also discussed in detail about avoid prolonged sun exposure, tanning while on doxycycline. Also outpatient dental follow up recommended and discussed to discuss current antibiotics when seeing a dentist or other provider. Replete KCl d/c home today with outpatient follow up. Plan discussed with patient in detail, all questions answered. Patient relays full understanding of the instructions and in agreement with the plan.
[2018-06-18 09:26] LABS: CHLORIDE 98 mmol/L (98-107); POTASSIUM 3.3 mmol/L (3.5-5.1); SODIUM 138 mmol/L (136-145)
[2018-06-18 09:30] LABS: ANION GAP 13 MMOL/L (8-16); BLOOD UREA NITROGEN 6 mg/dL (7-18); CALCIUM 9.2 mg/dL (8.5-10.1); CO2 27 mmol/L (21-32); CREATININE 0.6 mg/dL (0.55-1.02); GLUCOSE,RANDOM 76 mg/dL (74-106)
[2018-06-18] MEDS: PANTOPRAZOLE 40 MG TABLET (FP) PO SCH (09:37)
[2018-06-18] MEDS: DOXYCYCLINE HYCLATE 100 MG CAPSULE PO SCH (09:37)
[2018-06-18 11:07] VITALS: BP 114/68; PULSE 76; TEMP 98.4
[2018-06-18] MEDS ORDERED: PT OWN MED DRAWER 7, Y5N ONE (12:20)
--- NOTE | 2018-06-18 18:36 | DS ---
Physical Exam: SUBJECTIVE: Patient seen and examined at bedside this morning. Patient has no active complaints. She has abdominal pain last night which was relieved by Toradol. OBJECTIVE: Vital Signs Period Temp Pulse Resp BP Sys/Rodriguez Pulse Ox Last 24 Hr 98.4 F-99.2 F 68-76 18-20 114-144/68-84 100-100 PHYSICAL EXAM GENERAL: The patient is awake, alert, and fully oriented, in no acute distress. HEAD: Normal with no signs of trauma. EYES: PERRLA, EOMI, sclera anicteric, conjunctiva clear. ENT: Ears normal, nares patent, oropharynx clear without exudates, moist mucous membranes. NECK: Trachea midline, full range of motion, supple. LUNGS: Breath sounds equal, clear to auscultation bilaterally, no wheezes, no crackles, no accessory muscle use. HEART: Regular rate and rhythm, S1, S2 without murmur, rub or gallop. ABDOMEN: Soft, nontender, nondistended, normoactive bowel sounds. EXTREMITIES: 2+ pulses, warm, well-perfused, no edema. PSYCH: Normal mood, normal affect. SKIN: Warm, dry, normal turgor, no rashes or lesions noted. LABS Laboratory Results - last 24 hr 06/18/18 06:20 Sodium 138 Potassium 3.3 L Chloride 98 Carbon Dioxide 27 Anion Gap 13 BUN 6 L Creatinine 0.6 Creat Clearance w eGFR > 60 Random Glucose 76 Calcium 9.2 HOSPITAL COURSE: Date of Admission:06/16/18 Date of Discharge: 06/18/18 Patient is a 28 year old female with no past medical history presented with abdominal pain. Patient has been having abdominal pain accompanied by nausea and vomiting which started in early May. She went to [facility] where she was diagnosed with gastritis secondary to H. pylori on EGD (06/06/18). She was started on triple therapy (Amoxicillin, Clarithromycin, Omeprazole), and reported to be compliant with symptomatic relief until a few days ago when she started having abdominal pain again with NBNB vomiting. She came to the ED where she was subsequently admitted. Treatment was switched to quadruple therapy (Bismuth, Flagyl, Doxycycline, Pantoprazole). The next day, patient eloped from [facility] because she had an issue with her daughter, but that issue has been resolved and so patient came back due to persistence of symptoms. On admission, patient was continued on the quadruple therapy and reportedly tolerated it well. She was initially placed on BRAT diet and later on advanced to soft diet and reported that she was able to tolerate PO with no more episodes of vomiting. She still complained of epigastric pain at night, for which Toradol provided relief. Patient was discharged on 3rd HD with instructions to follow-up with her private GI and to continue quadruple therapy for 1 more day. Minutes to complete discharge: 45 Discharge Summary Reason For Visit: AP, NAUSEA AND VOMITING Condition: Improved - Instructions Diet, Activity, Other Instructions: You were in the hospital because of nausea, vomiting, and inability to eat. You have gastritis. You are being put on quadruple therapy. Please take the following medications for 1 more day: -Pepto-Bismol 262 mg 4 times daily -Flagyl 500 mg 3 times daily -Protonix 40 mg twice daily -Doxycycline 100 mg twice daily Please take medications as prescribed. Avoid prolonged sun exposure or tanning while on antibiotic doxycyline. Strongly advised dental follow up in 1 week. Please ensure your dentist and other providers know of your current antibiotics and medication regimen. You need to follow up with your primary care doctor in 1 week. Please follow up with Dr. Fuller (GI) in 1 week. If you develop new symptoms or if your symptoms get worse, new pain, inability to eat or any new concerns, return to the emergency department. Referrals: Ayden Bañuelos [Primary Care Provider] - 1 Week Disposition: HOME - Home Medications Comprehensive Discharge Medication List: Ambulatory Orders Bismuth Subsalicylate [Pepto-Bismol -] 262 mg PO 0000,0600,1200,2000 1 Days #4 ud 06/18/18 Doxycycline Hyclate [Vibramycin -] 100 mg PO BID@1000,1800 1 Days #2 capsule Pantoprazole Sodium [Protonix -] 40 mg PO BID 1 Days #2 tablet.ec 06/18/18 metroNIDAZOLE [Flagyl -] 500 mg PO TID #3 tablet 06/18/18 This patient is new to me today: Yes Date on this admission: 06/18/18 Emergency Visit: Yes ED Registration Date: 06/16/18 Care time: The patient presented to the Emergency Department on the above date and was hospitalized for further evaluation of their emergent condition. Critical Care patient: No - Discharge Referral Referred to [facility] Med P.C.: No
== END 2018-06-18 15:22 | disposition home or self-care (01) ==
LOC: JER 11:28 → JERBED 17:03 → INTOOBSV 17:03 → J8W 18:42
PROVIDERS: ADMIT Internal Medicine; ATTEND Hospitalist
PROC: 3E033NZ Introduction of Analgesics, Hypnotics, Sedatives into Peripheral Vein, Percutaneous Approach (ICD-10-PCS; principal; 2018-06-16)
PROC: 3E033GC Introduction of Other Therapeutic Substance into Peripheral Vein, Percutaneous Approach (ICD-10-PCS; 2018-06-16)
PROC: 3E0337Z Introduction of Electrolytic and Water Balance Substance into Peripheral Vein, Percutaneous Approach (ICD-10-PCS; 2018-06-16)
DX: R10.13 Epigastric pain (principal); B96.81 Helicobacter pylori [H. pylori] as the cause of diseases classified elsewhere; R11.2 Nausea with vomiting, unspecified; E87.6 Hypokalemia
CPT/HCPCS: 36415; 80048; 80053; 81003; 81015; 82150; 83690; 84703; 85025; 96365; 96372; 96375; 96376; 99283-25; G0378; J0131; J1644; Q0162

== ENCOUNTER 2018-06-22 10:56 | Emergency (ER) | payer OTHER ==
[2018-06-22 11:13] VITALS: TEMP 98.7; BMI 19.1
--- NOTE | 2018-06-22 11:56 | PDOC ---
History of Present Illness - General Chief Complaint: Pain, Acute Stated Complaint: CHEST PAIN & ABDOMINAL PAIN Time Seen by Provider: 06/22/18 11:03 - History of Present Illness Initial Comments: 06/22/18 11:53 28 yo F with h/o H. pylori 05/2018, recurrent ED visits and admission for epigastria pain who p/w epigastria pain. Patient with acute epigastric pain, with unremitting, worsening, retrosternal and left inframmamary radiation beginning at 0700 AM today. Asx. with two episodes of bilious, non bloody emesis this AM. No PO intake today. Normal bowel habits with daily stools and absent BPR. Symptoms have persisted with acute on chronic exaccerbtion in the month of May where she was evaluated at [facility] with diagnosis of gastritis secondary to H. Pylori, diagnosed by endoscopic report. Dr. Martinez (geriatric nurse practitioner ) prescribed triple therapy (amoxicillin ( discontinnued), clarithromycin,and omeprazole) on 06/06. Patient on Clindamycin for tooth infection. Possible Celiac disease based on CT AP (06/14/18). Patient denies F/C, CP, SOB, urinary complaints, vaginal bleeding, discharge, diarrhea, constipation, BPR, lightheadedness, weakness, sensory changes. PMHx: as noted above ROS: as noted SHx: Denies Etoh, tobacco, IVDA Allergies: NKDA Past History - Past Medical History Allergies/Adverse Reactions: Allergies Allergy/AdvReac Type Severity Reaction Status Date / Time No Known Allergies Allergy Verified 06/19/18 02:38 Home Medications: Ambulatory Orders Bismuth Subsalicylate [Pepto-Bismol -] 262 mg PO 0000,0600,1200,2000 1 Days #4 ud 06/18/18 Pantoprazole Sodium [Protonix -] 40 mg PO BID 1 Days #2 tablet.ec 06/18/18 Ondansetron HCl [Zofran] 4 mg PO PRN PRN #14 tablet MDD 2 tab 06/22/18 COPD: No GI Disorders: Yes (Gerd & H-pil, gastritis) - Immunization History Immunization Up to Date: Yes - Suicide/Smoking/Psychosocial Hx Smoking Status: Yes Smoking History: Current every day smoker Have you smoked in the past 12 months: Yes Number of Cigarettes Smoked Daily: 3 Cigars Per Day: 3 Information on smoking cessation initiated: No 'Breaking Loose' booklet given: 06/16/18 Hx Alcohol Use: No Drug/Substance Use Hx: No Substance Use Type: Alcohol, Marijuana Hx Substance Use Treatment: No Review of Systems - Review of Systems Comments:: 06/22/18 11:56 GENERAL/CONSTITUTIONAL: No fever or chills. No weakness. HEAD, EYES, EARS, NOSE AND THROAT: No change in vision. No ear pain or discharge. No sore throat. CARDIOVASCULAR: No chest pain or shortness of breath RESPIRATORY: No cough, wheezing, or hemoptysis. GASTROINTESTINAL: + nausea, vomiting, and abdominal pain. No diarrhea or constipation. GENITOURINARY: No dysuria, frequency, or change in urination. MUSCULOSKELETAL: No joint or muscle swelling or pain. No neck or back pain. SKIN: No rash NEUROLOGIC: No headache, vertigo, loss of consciousness, or change in strength/ sensation. ENDOCRINE: No increased thirst. No abnormal weight change HEMATOLOGIC/LYMPHATIC: No anemia, easy bleeding, or history of blood clots. ALLERGIC/IMMUNOLOGIC: No hives or skin allergy. *Physical Exam - Vital Signs Last Vital Signs Temp Pulse Resp BP Pulse Ox 98.7 F 84 18 168/89 98 06/22/18 11:02 06/22/18 11:36 06/22/18 11:02 06/22/18 11:02 06/22/18 11:36 - Physical Exam Comments: 06/22/18 11:56 GENERAL: Awake, alert, and fully oriented, in no acute distress HEAD: No signs of trauma, normocephalic, atraumatic EYES: PERRLA, EOMI, sclera anicteric, conjunctiva clear ENT: Hearing grossly normal, nares patent, oropharynx clear without exudates. Moist mucosa NECK: Normal ROM, supple, no lymphadenopathy, JVD, or masses LUNGS: No distress, speaks full sentences, clear to auscultation bilaterally HEART: Regular rate and rhythm, normal S1 and S2, no murmurs, rubs or gallops, peripheral pulses normal and equal bilaterally. ABDOMEN:+ Epigastric ttp. Soft, nontender, normoactive bowel sounds. No guarding, no rebound. No masses. Neg CVA ttp. EXTREMITIES : Normal inspection, Normal range of motion, no edema. No clubbing or cyanosis. SKIN: Warm, Dry, normal turgor, no rashes or lesions noted ED Treatment Course - LABORATORY CBC & Chemistry Diagram: 06/22/18 12:30 06/22/18 12:30 Medical Decision Making - Medical Decision Making 06/22/18 12:04 28 yo F with h/o H. pylori 05/2018, recurrent ED visits and admission for epigastria pain who p/w epigastria pain, nausea, and vomiting. VSS, AF, + epigastirc ttp. Likely 2/2 gastritis vs. esophagitis. Will consider biliary pathology, pancreatitis. Low suspicion PUD, Gertrude Joseph/Borhaave syndrome, colitis, diverticulitis, appendicitis, urinary pathology. ED Course: CBC,CMP, Lipase, UA, HCG Zofran, Famotidine, Maloox, Carafate, Viscous lidocaine, Tylenol, NS 06/22/18 12:06 EKG: NST with absent CHUY, STD, or TWI. Normal interval duration and axis. 06/22/18 12:53 WBC: 12.8 06/22/18 13:39 CMP: Unremarkable Patient pain improved following medication. 06/22/18 13:44 Zofran sent to pharmacy. Patient stable for d/c with return precautions. Advised to f/u with GI and PMD. *DC/Admit/Observation/Transfer Diagnosis at time of Disposition: Gastritis Qualifiers: Gastritis type: other gastritis Chronicity: chronic Gastritis bleeding: without bleeding Qualified Code(s): K29.50 - Unspecified chronic gastritis without bleeding Vomiting Qualifiers: Vomiting type: unspecified Vomiting Intractability: non-intractable Nausea presence: with nausea Qualified Code(s): R11.2 - Nausea with vomiting, unspecified - Discharge Dispostion Condition at time of disposition: Stable Decision to Admit order: No - Prescriptions Prescriptions: Ondansetron HCl [Zofran] 4 mg PO PRN PRN #14 tablet MDD 2 tab PRN Reason: Nausea And/Or Vomiting - Referrals Referrals: Ayden Bañuelos [Primary Care Provider] - Narciso Ibarra MD [Staff Physician] - - Patient Instructions Printed Discharge Instructions: Gastritis Additional Instructions: Please return to the emergency department with any new or worsening symptoms or concerns. Please follow up with your primary care physician within 72 hours. Please follow up with gastroenterology within one week. Continue to take medication as prescribed. Ny PRN sent to pharmacy. Continue protonix and bismuth. - Post Discharge Activity - Attestations Physician Attestion: 06/22/18 13:40 I attest to the information provided in this note.
[2018-06-22] MEDS ORDERED: MAG HYDROX/AL HYDROX/SIMETH 30 ML UNIT-DOSE CUP PO ONE (11:59)
[2018-06-22] MEDS ORDERED: ACETAMINOPHEN 1000 MG/100 ML VIAL (NON FORMULARY) IVPB ONE (11:59)
[2018-06-22] MEDS ORDERED: FAMOTIDINE 20 MG/50 ML IVPB 20 MG/50 ML MG IVPB ONE ×2 (11:59→12:04)
[2018-06-22] MEDS ORDERED: ONDANSETRON 4 MG/2 ML VIAL IVPUSH ONE (11:59)
[2018-06-22] MEDS ORDERED: SUCRALFATE 1 GM TABLET (FP) PO ONE (11:59)
[2018-06-22] MEDS ORDERED: LIDOCAINE VISCOUS 2% ORAL/TOP 20 ML UNIT-DOSE CUP MM ONE (12:02)
[2018-06-22] MEDS ORDERED: SUCRALFATE 1 GM TABLET (FP) ONE (12:03)
[2018-06-22] MEDS ORDERED: ACETAMINOPHEN INJECTION 100 ML IVPB ONE (12:03)
[2018-06-22] MEDS ORDERED: MAG HYDROX/AL HYDROX/SIMETH 30 ML UNIT-DOSE CUP ONE (12:03)
[2018-06-22] MEDS ORDERED: ONDANSETRON 4 MG/2 ML VIAL ONE (12:04)
[2018-06-22] MEDS ORDERED: SODIUM CHLORIDE 1,000 ML IV STA (12:05)
[2018-06-22] MEDS ORDERED: LIDOCAINE VISCOUS 2% ORAL/TOP 20 ML UNIT-DOSE CUP ONE (12:06)
--- NOTE | 2018-06-22 12:19 | PDOC ---
Attending Attestation - Resident Resident Name: Lenard Salas - ED Attending Attestation I have performed the following: I have examined & evaluated the patient, The case was reviewed & discussed with the resident, I agree w/resident's findings & plan, Exceptions are as noted - HPI HPI: 06/22/18 12:12 48-year-old female with history of H. pylori presents with persistent epigastric pain. The patient had recent admissions to [facility] and [facility] for epigastric pain and H. pylori. The patient has initially been on triple at the right therapy does now progressed to a quadruple antibody therapy. She has been having intermittent epigastric burning twisting-like pain rating to her left shoulder. This has been crying for the last several weeks. States that she's been taking anti-medics which is improved with the nausea. But because of the worsening symptoms today came to the ER. Denies midsternal chest pain or dyspnea on exertion. States that the pain is intermittent and is burning. - Physicial Exam PE: 06/22/18 12:15 GENERAL: Awake, alert, and fully oriented, in no acute distress HEAD: No signs of trauma EYES: EOMI, sclera anicteric, conjunctiva clear ENT: Auricles normal inspection, hearing grossly normal, nares patent, dry mucous membranes NECK: Normal ROM, supple, ABDOMEN: Soft, normoactive bowel sounds. No guarding, no rebound. No masses. TTP epigastric. No RUQ tenderness. EXTREMITIES: Normal range of motion, no edema. No clubbing or cyanosis. No cords, erythema, or tenderness NEUROLOGICAL: Cranial nerves II through XII grossly intact. Normal speech SKIN: Warm, Dry, normal turgor, no rashes or lesions noted. - Medical Decision Making 06/22/18 12:16 Vital Signs Temp Pulse Resp BP Pulse Ox 98.7 F 84 18 168/89 98 06/22/18 11:02 06/22/18 11:36 06/22/18 11:02 06/22/18 11:02 06/22/18 11:36 28-year-old female patient likely persistent with persistent gastritis secondary to H. pylori. EKG is reassuring and I feel this is unlikely to be acute coronary syndrome. She reports that this is same exact feeling for the last several weeks. We'll trunk her medications and reassess. Give IV fluids for dry mucous members. The patient reports feeling better, the patient be discharged for outpatient follow-up. 06/22/18 13:54 CBC, BMP 06/22/18 12:30 06/22/18 12:30 CMP Sodium 140 mmol/L (136-145) 06/22/18 12:30 Potassium 4.1 mmol/L (3.5-5.1) 06/22/18 12:30 Chloride 107 mmol/L (98-107) 06/22/18 12:30 Carbon Dioxide 25 mmol/L (21-32) 06/22/18 12:30 Anion Gap 8 MMOL/L (8-16) 06/22/18 12:30 BUN 10 mg/dL (7-18) 06/22/18 12:30 Creatinine 0.7 mg/dL (0.55-1.02) 06/22/18 12:30 Creat Clearance w eGFR > 60 (>60) 06/22/18 12:30 Random Glucose 84 mg/dL (74-106) 06/22/18 12:30 Calcium 8.4 mg/dL (8.5-10.1) L 06/22/18 12:30 Total Bilirubin 0.4 mg/dL (0.2-1.0) 06/22/18 12:30 AST 15 U/L (15-37) 06/22/18 12:30 ALT 24 U/L (12-78) 06/22/18 12:30 Alkaline Phosphatase 42 U/L (45-117) L 06/22/18 12:30 Creatine Kinase 102 IU/L (26-192) 06/22/18 12:30 Total Protein 6.7 g/dl (6.4-8.2) 06/22/18 12:30 Albumin 3.8 g/dl (3.4-5.0) 06/22/18 12:30 Lipase 245 U/L (73-393) 06/22/18 12:30 Heart Score/ECG Review #1 ECG reviewed & interpreted by me at: 11:15 06/22/18 12:21 NSR 65, no std/mary, normal axis, normal intervals, QTC 418 msec
[2018-06-22 12:45] LABS: BASO % 0.3 % (0-2.0); EOS % 0.1 % (0-4.5); HEMATOCRIT 36.2 % (32.4-45.2); LYMPH % 5.7 % (8-40); MCH 31.4 pg (25.7-33.7); MCHC 33.1 g/dl (32.0-36.0); MEAN CELL VOLUME 94.7 fl (80-96); MEAN PLT VOLUME 8.6 fl (7.5-11.1); MONO % 5.2 % (3.8-10.2); NEUT % 88.7 % (42.8-82.8); PLATELET COUNT 216 K/MM3 (134-434); RBC 3.82 M/mm3 (3.60-5.2); RDW 13.7 % (11.6-15.6); WHITE BLOOD COUNT 12.8 K/mm3 (4.0-10.0)
[2018-06-22 13:00] LABS: ALBUMIN 3.8 g/dl (3.4-5.0); ANION GAP 8 MMOL/L (8-16); BILIRUBIN,TOTAL 0.4 mg/dL (0.2-1.0); BLOOD UREA NITROGEN 10 mg/dL (7-18); CALCIUM 8.4 mg/dL (8.5-10.1); CHLORIDE 107 mmol/L (98-107); CO2 25 mmol/L (21-32); CREATININE 0.7 mg/dL (0.55-1.02); GLUCOSE,RANDOM 84 mg/dL (74-106); POTASSIUM 4.1 mmol/L (3.5-5.1); SGOT/AST 15 U/L (15-37); SGPT/ALT 24 U/L (12-78); SODIUM 140 mmol/L (136-145); TOT PROT 6.7 g/dl (6.4-8.2)
[2018-06-22 13:02] LABS: ALK PHOS 42 U/L (45-117)
[2018-06-22 13:09] LABS: LIPASE 245 U/L (73-393)
[2018-06-22 13:14] VITALS: BP 137/86; PULSE 71
--- NOTE | 2018-06-24 13:58 | EKG ---
Test Reason : Blood Pressure : / mmHG Vent. Rate : 065 BPM Atrial Rate : 065 BPM P-R Int : 138 ms QRS Dur : 070 ms QT Int : 402 ms P-R-T Axes : 051 065 057 degrees QTc Int : 418 ms NORMAL SINUS RHYTHM NORMAL ECG WHEN COMPARED WITH ECG OF 19-JUN-2018 02:37, NO SIGNIFICANT CHANGE WAS FOUND Confirmed by ADOLPH KIRK MD ([id number]) on 06/24/2018 1:58:30 PM Referred By: Confirmed By:ADOLPH KIRK MD
== END 2018-06-22 13:55 | disposition home or self-care (01) ==
LOC: JER 10:56
PROC: 3E0337Z Introduction of Electrolytic and Water Balance Substance into Peripheral Vein, Percutaneous Approach (ICD-10-PCS; principal; 2018-06-22)
PROC: 3E033GC Introduction of Other Therapeutic Substance into Peripheral Vein, Percutaneous Approach (ICD-10-PCS; 2018-06-22)
PROC: 3E033GC Introduction of Other Therapeutic Substance into Peripheral Vein, Percutaneous Approach (ICD-10-PCS; 2018-06-22)
PROC: 3E033NZ Introduction of Analgesics, Hypnotics, Sedatives into Peripheral Vein, Percutaneous Approach (ICD-10-PCS; 2018-06-22)
DX: K29.50 Unspecified chronic gastritis without bleeding (principal)
CPT/HCPCS: 36415; 80053; 82550; 83690; 84484; 85025; 93005; 93010; 96361; 96365; 96375; 99283-25; J0131; J7030

== ENCOUNTER 2018-07-01 10:33 | Emergency (ER) | payer OTHER ==
[2018-07-01 11:10] VITALS: TEMP 99.5; BMI 18.5
--- NOTE | 2018-07-01 12:10 | PDOC ---
History of Present Illness - General History Source: Patient Exam Limitations: No Limitations - History of Present Illness Initial Comments: 07/01/18 13:08 The patient is a 28 year old female with a past medical history of H. Pylori () and gastritis who presents to the emergency department for evaluation of abdominal pain. The patient reports a 1 month history of diffuse lower abdominal pain, worse this morning at 6am with multiple episodes of nonbloody bilious emesis. She describes the abdominal pain as a squeezing pain, ranked 9/ 10 in severity, localized to epigastric and umbilical region. Patient notes the pain is not similar to her cramps associated with her menses. She reports associated symptoms of fevers and chills. Patient has had multiple visits to the emergency department and has been admitted for similar symptoms and was discharged recently with antibiotics; however, the patient reports acute onset of nausea with the use of her PO medications causing her to discontinue her medications. She admits using marijuana for the aforementioned pain. Patients LMP was at the end of May. The patient denies chest pain, shortness of breath, headache, and dizziness. Denies diarrhea, constipation, bloody stools, dysuria, hematuria, abnormal vaginal discharges, and urinary urgency/frequency. Allergies: NKDA Surgical history: None reported. Social history: Admits marijuana use. No reported alcohol or cigarette use. PCP: Dr. Ayden Bañuelos ([phone]) <Melvi Lentz - Last Filed: 07/01/18 13:08> <Lakeisha Ozuna - Last Filed: 07/01/18 14:36> - General Chief Complaint: Pain, Acute Stated Complaint: ABD PAIN Time Seen by Provider: 07/01/18 11:34 Past History <Melvi Lentz - Last Filed: 07/01/18 13:08> - Past Medical History COPD: No GI Disorders: Yes (Gerd & H-pil, gastritis) - Immunization History Immunization Up to Date: Yes - Suicide/Smoking/Psychosocial Hx Smoking Status: Yes Smoking History: Unknown if ever smoked Have you smoked in the past 12 months: Yes Number of Cigarettes Smoked Daily: 3 Cigars Per Day: 3 Information on smoking cessation initiated: No 'Breaking Loose' booklet given: 06/16/18 Hx Alcohol Use: No Drug/Substance Use Hx: No Substance Use Type: Alcohol, Marijuana Hx Substance Use Treatment: No <Lakeisha Ozuna - Last Filed: 07/01/18 14:36> - Past Medical History Allergies/Adverse Reactions: Allergies Allergy/AdvReac Type Severity Reaction Status Date / Time No Known Allergies Allergy Verified 06/19/18 02:38 Home Medications: Ambulatory Orders Bismuth Subsalicylate [Pepto-Bismol -] 262 mg PO 0000,0600,1200,2000 1 Days #4 ud 06/18/18 Pantoprazole Sodium [Protonix -] 40 mg PO BID 1 Days #2 tablet.ec 06/18/18 Ondansetron HCl [Zofran] 4 mg PO PRN PRN #14 tablet MDD 2 tab 06/22/18 Ondansetron [Zofran -] 4 mg PO TID PRN #21 tablet 07/01/18 Review of Systems - Review of Systems Able to Perform ROS?: Yes Comments:: GENERAL/CONSTITUTIONAL: (+)Fever. (+)Chills. No weakness. HEAD, EYES, EARS, NOSE AND THROAT: No change in vision. No ear pain or discharge. No sore throat. CARDIOVASCULAR: No chest pain or shortness of breath. RESPIRATORY: No cough, wheezing, or hemoptysis. GASTROINTESTINAL: (+)Nausea. (+)Vomiting. No diarrhea or constipation. GENITOURINARY: No dysuria, frequency, or change in urination. MUSCULOSKELETAL: (+)Abdominal pain. No joint or muscle swelling or pain. No neck or back pain. SKIN: No rash NEUROLOGIC: No headache, vertigo, loss of consciousness, or change in strength/ sensation. ENDOCRINE: No increased thirst. No abnormal weight change. HEMATOLOGIC/LYMPHATIC: No anemia, easy bleeding, or history of blood clots. ALLERGIC/IMMUNOLOGIC: No hives or skin allergy. <Melvi Lentz - Last Filed: 07/01/18 13:08> *Physical Exam - Vital Signs Last Vital Signs Temp Pulse Resp BP Pulse Ox 99.5 F 79 16 146/102 100 07/01/18 11:04 07/01/18 11:04 07/01/18 11:04 07/01/18 11:04 07/01/18 11:04 <Melvi Lentz - Last Filed: 07/01/18 13:08> - Vital Signs Last Vital Signs Temp Pulse Resp BP Pulse Ox 99.5 F 79 16 146/102 100 07/01/18 11:04 07/01/18 11:04 07/01/18 11:04 07/01/18 11:04 07/01/18 11:04 - Physical Exam Comments: GENERAL: Awake, alert, and fully oriented, in no acute distress HEAD: No signs of trauma EYES: PERRLA, EOMI, sclera anicteric, conjunctiva clear ENT: Auricles normal inspection, hearing grossly normal, nares patent, oropharynx clear without exudates. Dry mucosa NECK: Normal ROM, supple, no lymphadenopathy, JVD, or masses LUNGS: Breath sounds equal, clear to auscultation bilaterally. No wheezes, and no crackles HEART: Regular rate and rhythm, normal S1 and S2, no murmurs, rubs or gallops ABDOMEN: Soft, diffusely tender, normoactive bowel sounds. +Guarding, no rebound. No masses EXTREMITIES: Normal range of motion, no edema. No clubbing or cyanosis. No cords, erythema, or tenderness NEUROLOGICAL: Cranial nerves II through XII grossly intact. Normal speech, normal gait SKIN: Warm, Dry, normal turgor, no rashes or lesions noted. <Lakeisha Ozuna - Last Filed: 07/01/18 14:36> ED Treatment Course - LABORATORY CBC & Chemistry Diagram: 07/01/18 13:18 07/01/18 13:18 <Lakeisha Ozuna - Last Filed: 07/01/18 14:36> Medical Decision Making - Medical Decision Making Pt states she has not been taking medication as it makes her nauseous, now presenting with vomiting, nausea, abd pain similar to prior presentations. Will obtain bloodwork and give GI cocktail, reassess. 07/01/18 14:36 Initial labs hemolyzed. Patient refused repeat labs and stated she was feeling better. DC home. <Lakeisha Ozuna - Last Filed: 07/01/18 14:36> *DC/Admit/Observation/Transfer - Attestations Scribe Attestion: Documentation prepared by Melvi Lentz, acting as medical records coordinator for Lakeisha Ozuna MD. <Melvi Lentz - Last Filed: 07/01/18 13:08> - Discharge Dispostion Decision to Admit order: No <Lakeisha Ozuna - Last Filed: 07/01/18 14:36> Diagnosis at time of Disposition: Nausea & vomiting Qualifiers: Vomiting type: unspecified Vomiting Intractability: non-intractable Qualified Code(s): R11.2 - Nausea with vomiting, unspecified - Discharge Dispostion Disposition: HOME Condition at time of disposition: Stable - Prescriptions Prescriptions: Ondansetron [Zofran -] 4 mg PO TID PRN #21 tablet PRN Reason: Nausea And/Or Vomiting - Referrals Referrals: Ayden Bañuelos [Primary Care Provider] - - Patient Instructions Printed Discharge Instructions: DI for Vomiting -- Adult - Post Discharge Activity
[2018-07-01] MEDS ORDERED: FAMOTIDINE 20 MG/50 ML IVPB 20 MG/50 ML MG IVPB ONE ×2 (12:14→13:26)
[2018-07-01] MEDS ORDERED: SODIUM CHLORIDE 1,000 ML IV STA (12:14)
[2018-07-01] MEDS ORDERED: ONDANSETRON 4 MG/2 ML VIAL IVPUSH ONE (12:14)
[2018-07-01] MEDS ORDERED: ONDANSETRON 4 MG/2 ML VIAL ONE (13:25)
[2018-07-01 14:23] LABS: BASO % 0.8 % (0-2.0); EOS % 0.4 % (0-4.5); HEMATOCRIT 37.8 % (32.4-45.2); HEMOGLOBIN 12.9 GM/dL (10.7-15.3); LYMPH % 14.7 % (8-40); MCH 31.9 pg (25.7-33.7); MEAN CELL VOLUME 93.6 fl (80-96); MEAN PLT VOLUME 8.7 fl (7.5-11.1); MONO % 4.9 % (3.8-10.2); NEUT % 79.2 % (42.8-82.8); PLATELET COUNT 281 K/MM3 (134-434); RBC 4.04 M/mm3 (3.60-5.2); RDW 13.3 % (11.6-15.6)
[2018-07-01 15:31] VITALS: BP 138/92; PULSE 85
== END 2018-07-01 14:15 | disposition home or self-care (01) ==
LOC: JER 10:33
PROC: 3E033GC Introduction of Other Therapeutic Substance into Peripheral Vein, Percutaneous Approach (ICD-10-PCS; principal; 2018-07-01)
PROC: 3E033GC Introduction of Other Therapeutic Substance into Peripheral Vein, Percutaneous Approach (ICD-10-PCS; 2018-07-01)
DX: R11.2 Nausea with vomiting, unspecified (principal); Z87.19 Personal history of other diseases of the digestive system; B96.81 Helicobacter pylori [H. pylori] as the cause of diseases classified elsewhere
CPT/HCPCS: 36415; 85025; 99283-25; J7030

== ENCOUNTER 2018-07-03 10:55 | Emergency (ER) | payer OTHER ==
[2018-07-03 11:06] VITALS: TEMP 99; BMI 18.3
--- NOTE | 2018-07-03 12:04 | PDOC ---
History of Present Illness - General Chief Complaint: Pain Stated Complaint: ABD PAIN Time Seen by Provider: 07/03/18 11:36 History Source: Patient Exam Limitations: No Limitations - History of Present Illness Travel History: No Initial Comments: 07/03/18 12:06 28-year-old female with recent diagnosis of H. pylori by her excelsior picker currently on antibiotics which she states is unable to take routinely secondary to pain and nausea/vomiting. Presents today with sharp pain to the epigastric area causing her difficulty to tolerate fluids and solids. Patient denies fever , chills and states took a Zofran this morning with minimal improvement. Patient states continues to smoke marijuana which seems to alleviate her discomfort. Patient denies decreased urinary output, weakness, or dizziness Timing/Duration: reports: constant Quality: reports: moderate Abdominal Pain Onset Location: reports: epigastric Pain Radiation: reports: no radiation Activities at Onset: reports: none Aggravating Factors: improves with: Eating Alleviating Factors: improves with: None Past History - Travel Traveled outside of the country in the last 30 days: No - Past Medical History Allergies/Adverse Reactions: Allergies Allergy/AdvReac Type Severity Reaction Status Date / Time No Known Allergies Allergy Verified 07/03/18 11:06 Home Medications: Ambulatory Orders Bismuth Subsalicylate [Pepto-Bismol -] 262 mg PO 0000,0600,1200,2000 1 Days #4 ud 06/18/18 Pantoprazole Sodium [Protonix -] 40 mg PO BID 1 Days #2 tablet.ec 06/18/18 Ondansetron [Zofran -] 4 mg PO TID PRN #21 tablet 07/01/18 COPD: No DVT: No GI Disorders: Yes (Gerd & H-pil, gastritis) - Immunization History Immunization Up to Date: Yes - Suicide/Smoking/Psychosocial Hx Smoking Status: Yes Smoking History: Unknown if ever smoked Have you smoked in the past 12 months: Yes Number of Cigarettes Smoked Daily: 0 If you are a former smoker, when did you quit?: 2018 Cigars Per Day: 0 Information on smoking cessation initiated: No 'Breaking Loose' booklet given: 06/16/18 Hx Alcohol Use: No Drug/Substance Use Hx: No Substance Use Type: Alcohol, Marijuana Hx Substance Use Treatment: No Patient Lives Alone: No Abd/GI Specific PMHX - Complaint Specific PMHX GERD: Yes Review of Systems - Review of Systems Able to Perform ROS?: No Constitutional: No: Symptoms Reported HEENTM: No: Symptoms Reported Respiratory: No: Symptoms reported Cardiac (ROS): No: Symptoms Reported ABD/GI: Yes: Nausea, Poor Appetite, Poor Fluid Intake, Vomiting, Abdominal cramping. No: Constipated, Diarrhea : No: Symptoms Reported Musculoskeletal: No: Symptoms Reported Integumentary: No: Symptoms Reported Neurological: No: Symptoms reported Hematologic/Lymphatic: No: Symptoms Reported *Physical Exam - Vital Signs Last Vital Signs Temp Pulse Resp BP Pulse Ox 99 F 92 H 19 130/87 100 07/03/18 11:04 07/03/18 11:04 07/03/18 11:04 07/03/18 11:04 07/03/18 11:04 - Physical Exam General Appearance: Yes: Nourished, Appropriately Dressed, Thin. No: Apparent Distress HEENT: positive: EOMI, LYSSA, Pharynx Normal (moist) Neck: positive: Supple Respiratory/Chest: positive: Lungs Clear, Normal Breath Sounds. negative: Respiratory Distress, Accessory Muscle Use Cardiovascular: positive: Regular Rhythm, Regular Rate. negative: Murmur Gastrointestinal/Abdominal: positive: Soft, Tenderness (epigastric) Rectal Exam: negative: heme negative stool Musculoskeletal: negative: Normal Inspection Extremity: positive: Normal Capillary Refill Integumentary: positive: Normal Color, Warm, Moist Neurologic: positive: Motor Strength 5/5 (ambulatory) ED Treatment Course - LABORATORY CBC & Chemistry Diagram: 07/03/18 12:12 07/03/18 12:12 Medical Decision Making - Medical Decision Making 07/03/18 12:00 Patient with nausea vomiting and upper abdominal pain. Patient with recent diagnosis of H. pylori noncompliant with medications on a daily basis. Patient states over with no improvement this morning causing her to vomit and have increasing upper abdominal pain. Patient is a daily marijuana smoker. Patient has no other complaints at this time. Patient ordered for labs, IV fluids, urine , drug drug toxicology antiemetics and antiacids. will order analgesics once urine has resulted 07/03/18 14:00 Laboratory Tests 07/03/18 07/03/18 07/03/18 12:12 12:12 12:12 WBC 8.1 Hgb 12.8 Hct 38.7 Sodium 137 Potassium 4.9 Carbon Dioxide 22 Anion Gap 10 BUN 11 Creatinine 0.7 Random Glucose 89 Calcium 9.6 Magnesium 2.1 Total Bilirubin 0.8 AST 21 ALT 20 Alkaline Phosphatase 47 Total Protein 7.8 Albumin 4.4 Lipase 597 H Urine Ketones 1+ H Urine Nitrite Negative Urine Urobilinogen 2.0 H U Marijuana (THC) Screen 07/03/18 12:12 WBC Hgb Hct Sodium Potassium Carbon Dioxide Anion Gap BUN Creatinine Random Glucose Calcium Magnesium Total Bilirubin AST ALT Alkaline Phosphatase Total Protein Albumin Lipase Urine Ketones Urine Nitrite Urine Urobilinogen U Marijuana (THC) Screen Positive Patient ordered for second bag of IV fluids along with a gallbladder ultrasound. Will consider CT if gallbladder ultrasound is negative 07/03/18 16:15 ultrasound- Essentially unremarkable examination with no gallstones identified. Patient ordered for abdominal CT to rule out pancreatitis. 07/03/18 17:55 Patient states is feeling better and does not want to be admitted for observation secondary to elevated lipase. CT showed no obvious signs of pancreatitis or other acute pathology. patient understands she will be leaving AMA and is aware of consequences. Patient is alert and oriented 3. Patient will complete AMA form. Patient also understands return if symptoms worsen. *DC/Admit/Observation/Transfer Diagnosis at time of Disposition: Elevated lipase, Abdominal pain - Discharge Dispostion Disposition: AGAINST MEDICAL ADVICE Condition at time of disposition: Fair - Referrals Referrals: Ayden Bañuelos [Primary Care Provider] - - Patient Instructions Printed Discharge Instructions: DI for Abdominal Pain-Adult Additional Instructions: Understand although you're leaving AGAINST MEDICAL ADVICE [facility] is opened 24 hours a day 7 days a week and if your symptoms do worsen, you may return to the emergency room at any given time. - Post Discharge Activity
[2018-07-03] MEDS ORDERED: SODIUM CHLORIDE 1,000 ML IV STA ×2 (12:05→13:59)
[2018-07-03] MEDS ORDERED: ONDANSETRON 4 MG/2 ML VIAL IVPUSH ONE (12:16)
[2018-07-03] MEDS ORDERED: PANTOPRAZOLE SODIUM 40 MG in SODIUM CHLORIDE 100 ML IVPB ONE (12:17)
[2018-07-03] MEDS ORDERED: PANTOPRAZOLE SODIUM 40 MG/100 ML BAG IVPB ONE (12:22)
[2018-07-03] MEDS ORDERED: ONDANSETRON 4 MG/2 ML VIAL ONE (12:22)
[2018-07-03 12:40] LABS: BASO % 0.7 % (0-2.0); EOS % 0.2 % (0-4.5); HEMATOCRIT 38.7 % (32.4-45.2); HEMOGLOBIN 12.8 GM/dL (10.7-15.3); LYMPH % 15.1 % (8-40); MCH 31.1 pg (25.7-33.7); MCHC 32.9 g/dl (32.0-36.0); MEAN CELL VOLUME 94.4 fl (80-96); MEAN PLT VOLUME 7.9 fl (7.5-11.1); MONO % 6.2 % (3.8-10.2); NEUT % 77.8 % (42.8-82.8); PLATELET COUNT 245 K/MM3 (134-434); RBC 4.11 M/mm3 (3.60-5.2); RDW 13.3 % (11.6-15.6); WHITE BLOOD COUNT 8.1 K/mm3 (4.0-10.0)
[2018-07-03 13:04] LABS: ALBUMIN 4.4 g/dl (3.4-5.0); ANION GAP 10 MMOL/L (8-16); BILIRUBIN,TOTAL 0.8 mg/dL (0.2-1.0); BLOOD UREA NITROGEN 11 mg/dL (7-18); CALCIUM 9.6 mg/dL (8.5-10.1); CHLORIDE 105 mmol/L (98-107); CO2 22 mmol/L (21-32); CREATININE 0.7 mg/dL (0.55-1.02); GLUCOSE,RANDOM 89 mg/dL (74-106); SGPT/ALT 20 U/L (12-78); SODIUM 137 mmol/L (136-145); TOT PROT 7.8 g/dl (6.4-8.2)
[2018-07-03 13:05] LABS: ALK PHOS 47 U/L (45-117)
[2018-07-03 13:09] LABS: LIPASE 597 U/L (73-393); MAGNESIUM 2.1 mg/dL (1.8-2.4); POTASSIUM 4.9 mmol/L (3.5-5.1); SGOT/AST 21 U/L (15-37)
[2018-07-03 13:29] LABS: URINE APPEARANCE CLOUDY; URINE BILIRUBIN NEGATIVE (<2.0 mg/dL); URINE COLOR YELLOW; URINE GLUCOSE (UA) NEGATIVE (NEGATIVE); URINE KETONE 1+ (NEGATIVE); URINE LEUK ESTERASE NEGATIVE (NEGATIVE); URINE NITRITE NEGATIVE (NEGATIVE); URINE PROTEIN NEGATIVE (NEGATIVE)
[2018-07-03 13:39] LABS: HCG,QUALITATIVE URINE NEGATIVE
[2018-07-03 13:45] LABS: COCAINE, UR NEGATIVE ng/ml (CUTOFF=300); METHADONE, UR NEGATIVE ng/ml (CUTOFF=300); OPIATES, URI NEGATIVE ng/ml (CUTOFF=300); PHENCYCLIDINE,URINE NEGATIVE ng/ml (CUTOFF=25); URINE AMPHETAMINES NEGATIVE ng/ml (CUTOFF=500); URINE BARBITURATES NEGATIVE ng/ml (CUTOFF=200); URINE BENZODIAZEPINES NEGATIVE ng/ml (CUTOFF=200)
--- NOTE | 2018-07-03 15:45 | PDOC ---
*Physical Exam - Vital Signs Last Vital Signs Temp Pulse Resp BP Pulse Ox 99 F 92 H 19 130/87 100 07/03/18 11:04 07/03/18 11:04 07/03/18 11:04 07/03/18 11:04 07/03/18 11:04 - Physical Exam Comments: 07/03/18 15:44 The patient was examined by CHELE Trotter under my direct supervision. I personally evaluated the patient. I concur with the above findings and the plan of care. ED Treatment Course - LABORATORY CBC & Chemistry Diagram: 07/03/18 12:12 07/03/18 12:12 - ADDITIONAL ORDERS Additional order review: Laboratory Results 07/03/18 07/03/18 07/03/18 12:12 12:12 12:12 Sodium 137 Potassium 4.9 Chloride 105 Carbon Dioxide 22 Anion Gap 10 BUN 11 Creatinine 0.7 Creat Clearance w eGFR > 60 Random Glucose 89 Calcium 9.6 Magnesium 2.1 Total Bilirubin 0.8 AST 21 ALT 20 Alkaline Phosphatase 47 Total Protein 7.8 Albumin 4.4 Lipase 597 H Urine Color Yellow Urine Appearance Cloudy Urine pH 8.0 Ur Specific [place] 1.019 Urine Protein Negative Urine Glucose (UA) Negative Urine Ketones 1+ H Urine Blood Negative Urine Nitrite Negative Urine Bilirubin Negative Urine Urobilinogen 2.0 H Ur Leukocyte Esterase Negative Urine HCG, Qual Negative Opiates Screen Negative Methadone Screen Negative Barbiturate Screen Negative Phencyclidine Screen Negative Ur Amphetamines Screen Negative MDMA (Ecstasy) Screen Negative Benzodiazepines Screen Negative Cocaine Screen Negative U Marijuana (THC) Screen Positive 07/03/18 12:12 RBC 4.11 MCV 94.4 MCHC 32.9 RDW 13.3 MPV 7.9 Neutrophils % 77.8 Lymphocytes % 15.1 Monocytes % 6.2 Eosinophils % 0.2 Basophils % 0.7 - Medications Given in the ED: ED Medications Discontinued Medications Generic Name Dose Route Start Last Admin Trade Name Freq PRN Reason Stop Dose Admin Sodium Chloride 1,000 mls @ 1,000 mls/hr 07/03/18 12:05 07/03/18 12:39 Normal Saline - IV 07/03/18 13:04 1,000 mls/hr ASDIR STA Administration Pantoprazole Sodium 40 mg/ 100 mls @ 200 mls/hr 07/03/18 12:17 07/03/18 12:39 Sodium Chloride IVPB 07/03/18 12:46 200 mls/hr ONCE ONE Administration Sodium Chloride 1,000 mls @ 1,000 mls/hr 07/03/18 13:59 07/03/18 14:29 Normal Saline - IV 07/03/18 14:58 1,000 mls/hr ASDIR STA Administration Ondansetron HCl 4 mg 07/03/18 12:16 07/03/18 12:33 Zofran Injection IVPUSH 07/03/18 12:17 4 mg ONCE ONE Administration *DC/Admit/Observation/Transfer - Referrals Referrals: Ayden Bañuelos [Primary Care Provider] - - Patient Instructions - Post Discharge Activity
[2018-07-03 18:13] VITALS: BP 114/74; PULSE 82
== END 2018-07-03 18:13 | disposition left against medical advice (07) ==
LOC: JER 10:55
PROC: 3E033GC Introduction of Other Therapeutic Substance into Peripheral Vein, Percutaneous Approach (ICD-10-PCS; principal; 2018-07-03)
PROC: 3E0337Z Introduction of Electrolytic and Water Balance Substance into Peripheral Vein, Percutaneous Approach (ICD-10-PCS; 2018-07-03)
DX: R79.9 Abnormal finding of blood chemistry, unspecified (principal); R10.13 Epigastric pain; K21.9 Gastro-esophageal reflux disease without esophagitis; Z87.891 Personal history of nicotine dependence
CPT/HCPCS: 36415; 74150-TC; 76705-TC; 80053; 80307; 81003; 83690; 83735; 84703; 85025; 99283-25; J7030

== ENCOUNTER 2018-07-04 14:39 | Emergency (ER) | payer OTHER ==
[2018-07-04 14:48] VITALS: TEMP 98.4; BMI 19.1
--- NOTE | 2018-07-04 14:49 | PDOC ---
Rapid Medical Evaluation Medical Evaluation: Allergies Allergy/AdvReac Type Severity Reaction Status Date / Time No Known Allergies Allergy Verified 07/04/18 14:41 07/04/18 14:44 Pt presents for epigastric pain for three days. Pt has been seen for the past 3 days for similar symptoms. Pt had elevated lipase on labs yesterday, diagnosed with pancreatitis. Admits to nausea, but no vomiting. Exam : epigastric tenderness. NAD Orders: Labs, Urine, IV Pt to proceed to ED for further evaluation Discharge Disposition - Diagnosis Abdominal pain - Referrals Referrals: Ayden Bañuelos [Primary Care Provider] - - Patient Instructions - Post Discharge Activity
[2018-07-04 15:06] LABS: URINE APPEARANCE SLCLOUDY; URINE BILIRUBIN NEGATIVE (<2.0 mg/dL); URINE COLOR YELLOW; URINE GLUCOSE (UA) NEGATIVE (NEGATIVE); URINE KETONE TRACE (NEGATIVE); URINE LEUK ESTERASE NEGATIVE (NEGATIVE); URINE NITRITE NEGATIVE (NEGATIVE); URINE PROTEIN NEGATIVE (NEGATIVE)
--- NOTE | 2018-07-04 15:06 | PDOC ---
History of Present Illness - General Chief Complaint: Revisit, Lab Variance Stated Complaint: REVISIT Time Seen by Provider: 07/04/18 15:06 - History of Present Illness Initial Comments: 07/04/18 15:06 Ms. Wilcox is a 28 yo female w/ pmh of H. pylori currently on ABX seen yesterday w/ diagnosis of acute pancreatitis (lipase noted to 597) who presents for evaluation of continued abdominal pain. Patient had signed out AMA yesterday as she had to take care of family responsibilities and is back for further care. Patient reports sharp epigastric pain with any eating and has been unable to take her h. pylori antibiotics consistently. Reports marijuana has helped w/ her discomfort. Currently nauseated but no vomiting today. The patient denies chest pain, shortness of breath, headache and dizziness. Denies fever, chills, vomit, diarrhea and constipation. Denies dysuria, frequency, urgency and hematuria. Allergies: NKDA Past History - Past Medical History Allergies/Adverse Reactions: Allergies Allergy/AdvReac Type Severity Reaction Status Date / Time No Known Allergies Allergy Verified 07/04/18 14:41 Home Medications: Ambulatory Orders NK [No Known Home Medication] 07/04/18 COPD: No DVT: No GI Disorders: Yes (Gerd & H-pil, gastritis) - Immunization History Immunization Up to Date: Yes - Suicide/Smoking/Psychosocial Hx Smoking Status: Yes Smoking History: Former smoker Have you smoked in the past 12 months: Yes Number of Cigarettes Smoked Daily: 0 If you are a former smoker, when did you quit?: 05/2018 Cigars Per Day: 0 Information on smoking cessation initiated: No 'Breaking Loose' booklet given: 06/16/18 Hx Alcohol Use: No Drug/Substance Use Hx: Yes Substance Use Type: Marijuana Hx Substance Use Treatment: No Review of Systems - Review of Systems Comments:: 07/04/18 15:21 GENERAL/CONSTITUTIONAL: No fever or chills. No weakness. HEAD, EYES, EARS, NOSE AND THROAT: No change in vision. No ear pain or discharge. No sore throat. CARDIOVASCULAR: No chest pain or shortness of breath RESPIRATORY: No cough, wheezing, or hemoptysis. GASTROINTESTINAL: +Nausea and epigastric pain as described. No vomiting, diarrhea, or constipation. GENITOURINARY: No dysuria, frequency, or change in urination. MUSCULOSKELETAL: No joint or muscle swelling or pain. No neck or back pain. SKIN: No rash NEUROLOGIC: No headache, vertigo, loss of consciousness, or change in strength/ sensation. ENDOCRINE: No increased thirst. No abnormal weight change HEMATOLOGIC/LYMPHATIC: No anemia, easy bleeding, or history of blood clots. ALLERGIC/IMMUNOLOGIC: No hives or skin allergy. *Physical Exam - Vital Signs Last Vital Signs Temp Pulse Resp BP Pulse Ox 98.4 F 104 H 18 122/77 100 07/04/18 14:41 07/04/18 14:41 07/04/18 14:41 07/04/18 14:41 07/04/18 14:41 - Physical Exam Comments: 07/04/18 15:22 GENERAL: Awake, alert, and fully oriented, in no acute distress HEAD: No signs of trauma, normocephalic, atraumatic EYES: +Sclera icteric. PERRLA, EOMI, conjunctiva clear ENT: Auricles normal inspection, hearing grossly normal, nares patent, oropharynx clear without exudates. Moist mucosa NECK: Normal ROM, supple, no lymphadenopathy, JVD, or masses LUNGS: No distress, speaks full sentences, clear to auscultation bilaterally HEART: Regular rate and rhythm, normal S1 and S2, no murmurs, rubs or gallops, peripheral pulses normal and equal bilaterally. ABDOMEN: +Epigastric TTP. Soft, normoactive bowel sounds. No guarding, no rebound. No masses EXTREMITIES: Normal inspection, Normal range of motion, no edema. No clubbing or cyanosis. NEUROLOGICAL: Cranial nerves II through XII grossly intact. Normal speech, normal gait, no focal sensorimotor deficits SKIN: Warm, Dry, normal turgor, no rashes or lesions noted. ED Treatment Course - LABORATORY CBC & Chemistry Diagram: 07/04/18 14:51 07/04/18 14:51 Medical Decision Making - Medical Decision Making 07/04/18 15:57 Ms. Wilcox is a 28 yo female w/ pmh as described who represents for evaluation of epigastric pain in setting of elevated lipase. Patient repeat labs as below and patient reporting generalized improvement from yesterday. No concern for acute pancreatitis at this time; patient exam c/w resolving picture. Patient given pain control and zofran Rx for home pain control and instructed to refrain from eating for 2-3 days and f/u w/ GI doctor. 07/04/18 16:43 Patient complaining of left sided chest pain radiating to shoulder. Repeat exam significant for acute point tenderness to left lateral chest. 07/04/18 17:33 Add-on troponin negative as below. Patient had single episode of vomiting; pepcid/zofran given for symptomatic relief. 07/04/18 18:27 PO Challenge attempted. 07/04/18 18:30 Patient given name of GI physician per request (Renetta) for 2nd opinion. 07/04/18 18:47 Patient passed PO challenge. Discussed at length follow-up steps with Aunt and patient and the need to refrain from eating for 2 days. Patient reports she will f/u with GI and follow-instructions as given. No concern for emergent process at this time. Discharging to home. *DC/Admit/Observation/Transfer Diagnosis at time of Disposition: Abdominal pain Qualifiers: Abdominal location: unspecified location Qualified Code(s): R10.9 - Unspecified abdominal pain - Discharge Dispostion Disposition: HOME - Referrals Referrals: Ayden Bañuelos [Primary Care Provider] - Golden Jackson MD [Staff Physician] - - Patient Instructions Printed Discharge Instructions: DI for Pancreatitis Additional Instructions: You were evaluated today in the ER for your stomach pain. Your pancreatitis from yesterday appears to be resolving however you should generally abstain from eating for the next 2-3 days (per attached instructions). Drink plenty of fluids. Follow-up with Gastroenterology at provided information for further evaluation. A prescription for pain and nausea medication has been sent to your pharmacy. Please take all medications as proscribed. Return to ER if any return of pain, fever, chills, or other concerning symptoms. - Post Discharge Activity
[2018-07-04 15:10] LABS: EPI CELLS MODERATE /HPF (FEW); URINE BACTERIA RARE /hpf (NONE SEEN); URINE MUCUS MODERATE
[2018-07-04 15:16] LABS: BASO % 1.1 % (0-2.0); EOS % 0.9 % (0-4.5); HEMATOCRIT 34.5 % (32.4-45.2); HEMOGLOBIN 11.7 GM/dL (10.7-15.3); LYMPH % 34.9 % (8-40); MCH 31.6 pg (25.7-33.7); MCHC 33.9 g/dl (32.0-36.0); MEAN CELL VOLUME 93.3 fl (80-96); MEAN PLT VOLUME 8.1 fl (7.5-11.1); MONO % 9.2 % (3.8-10.2); NEUT % 53.9 % (42.8-82.8); PLATELET COUNT 241 K/MM3 (134-434); RDW 13.1 % (11.6-15.6); WHITE BLOOD COUNT 5.3 K/mm3 (4.0-10.0)
[2018-07-04 15:30] LABS: INR 1.24 (0.83-1.09)
--- NOTE | 2018-07-04 15:36 | EKG ---
Test Reason : Blood Pressure : / mmHG Vent. Rate : 075 BPM Atrial Rate : 075 BPM P-R Int : 134 ms QRS Dur : 066 ms QT Int : 328 ms P-R-T Axes : 069 069 062 degrees QTc Int : 366 ms NORMAL SINUS RHYTHM NORMAL ECG WHEN COMPARED WITH ECG OF 22-JUN-2018 11:19, NO SIGNIFICANT CHANGE WAS FOUND Confirmed by JESSICA CAMP MD ([id number]) on 07/04/2018 3:35:56 PM Referred By: Confirmed By:JESSICA CAMP MD
[2018-07-04 15:39] LABS: ALBUMIN 4.2 g/dl (3.4-5.0); ANION GAP 7 MMOL/L (8-16); BILIRUBIN,TOTAL 0.9 mg/dL (0.2-1.0); BLOOD UREA NITROGEN 7 mg/dL (7-18); CALCIUM 9.1 mg/dL (8.5-10.1); CHLORIDE 104 mmol/L (98-107); CO2 28 mmol/L (21-32); CREATININE 0.7 mg/dL (0.55-1.3); GLUCOSE,RANDOM 82 mg/dL (74-106); POTASSIUM 3.9 mmol/L (3.5-5.1); SGOT/AST 18 U/L (15-37); SGPT/ALT 17 U/L (13-61); SODIUM 139 mmol/L (136-145)
[2018-07-04 15:40] LABS: ALK PHOS 41 U/L (45-117)
[2018-07-04] MEDS ORDERED: SODIUM CHLORIDE 1,000 ML IV STA (16:03)
[2018-07-04 16:31] VITALS: BP 136/95; PULSE 74
[2018-07-04 16:43] LABS: HCG,QUALITATIVE URINE Negative
[2018-07-04] MEDS ORDERED: ONDANSETRON 4 MG/2 ML VIAL IVPUSH ONE (17:10)
[2018-07-04] MEDS ORDERED: FAMOTIDINE 20 MG/50 ML IVPB 20 MG/50 ML MG IVPB ONE ×2 (17:10→17:16)
[2018-07-04] MEDS ORDERED: ONDANSETRON 4 MG/2 ML VIAL ONE (17:16)
--- NOTE | 2018-07-04 18:56 | PDOC ---
Attending Attestation - Resident Resident Name: Wyatt Banuelos - ED Attending Attestation I have performed the following: I have examined & evaluated the patient, The case was reviewed & discussed with the resident, I agree w/resident's findings & plan, Exceptions are as noted - HPI HPI: 07/04/18 19:00 Agree with residents HPI - Physicial Exam PE: 07/04/18 19:01 Agree with resident PE with the below exceptions - Medical Decision Making 07/04/18 19:01 28 years old with recent diagnosis of H. pylori and yesterday was diagnosed with pancreatitis presents to the emergency department with persistent abdominal discomfort. Labs today are improving from yesterday her lipase level is decreasing Patient is well-appearing and in no apparent distress still with some mild left upper quadrant discomfort but no rebound no guarding. Status post IV fluids and antiemetics patient is not tolerating by mouth we'll discharge home with 2 days of pain medication as well as fluids only for the next 2 days she was given gastroenterology follow-up she'll return to the ED for any severe worsening pain fever persistent vomiting or for any concerns. Findings, need for follow-up and strict return instructions discussed with patient.
== END 2018-07-04 19:11 | disposition home or self-care (01) ==
LOC: JER 14:39
PROC: 3E0337Z Introduction of Electrolytic and Water Balance Substance into Peripheral Vein, Percutaneous Approach (ICD-10-PCS; principal; 2018-07-04)
PROC: 3E033GC Introduction of Other Therapeutic Substance into Peripheral Vein, Percutaneous Approach (ICD-10-PCS; 2018-07-04)
PROC: 3E033GC Introduction of Other Therapeutic Substance into Peripheral Vein, Percutaneous Approach (ICD-10-PCS; 2018-07-04)
DX: K86.9 Disease of pancreas, unspecified (principal); A04.8 Other specified bacterial intestinal infections
CPT/HCPCS: 36415; 80053; 81003; 81015; 82550; 83690; 84484; 84703; 85025; 85610; 87086; 93005; 93010; 99283-25; J7030